=== PATIENT | male | born 1965 | race American Indian/Alaskan Native ===

== ENCOUNTER 2018-02-04 23:48 | Emergency (ER) | payer MEDICAID, OTHER ==
--- NOTE | 2018-02-05 00:01 | EDM.PDOC ---
ED HPI GENERAL MEDICAL PROBLEM - General Chief Complaint: Diabetic Complaint Stated Complaint: HIGH BLOOD SUGAR [id number] [id number] Time Seen by Provider: 02/05/18 00:01 Source of Information: Reports: Patient History Limitations: Reports: No Limitations - History of Present Illness INITIAL COMMENTS - FREE TEXT/NARRATIVE: c/o high BS 580 @ home. last took insulin @ 10:45pm. no other c/o. Lower Back Pain Score (Numeric/FACES): 7 - Related Data Allergies Allergy/AdvReac Type Severity Reaction Status Date / Time No Known Allergies Allergy Verified 05/20/14 21:37 Home Meds: Home Meds Aspirin [Lam Chewable] 81 mg PO DAILY 04/07/13 [History] oxyCODONE ER [OxyCONTIN] 20 mg PO Q12HR 04/07/13 [History] oxyCODONE HCl/Acetaminophen [Percocet 10-325 MG] 1 tab PO Q4H PRN 04/07/13 [ History] Gemfibrozil [Lopid] 600 mg PO BID 04/12/13 [History] Lisinopril [Prinivil] 5 mg PO DAILY 04/12/13 [History] Insulin Detemir [Levemir] 10 unit SQ DAILY 10/27/14 [History] metFORMIN [Glucophage] 1,000 mg PO BIDMEALS 10/27/14 [History] Past Medical History Other Musculoskeletal History: back injury several years ago Endocrine/Metabolic History: Reports: Diabetes, Type II - Past Surgical History Cardiovascular Surgical History: Reports: Coronary Artery Stent Social & Family History - Tobacco Use Smoking Status *Q: Never Smoker - Recreational Drug Use Recreational Drug Use: No ED ROS GENERAL - Review of Systems Review Of Systems: ROS reveals no pertinent complaints other than HPI. ED EXAM GENERAL NO PERIP PULSE - Physical Exam Exam: See Below Exam Limited By: No Limitations General Appearance: Alert, WD/WN, No Apparent Distress Throat/Mouth: Normal Voice, No Airway Compromise Head: Atraumatic Neck: Non-Tender, Full Range of Motion Respiratory/Chest: No Respiratory Distress Cardiovascular: Regular Rate, Rhythm GI/Abdominal: Soft, Non-Tender Neurological: Alert, Oriented, Normal Cognition, Normal Gait, No Motor/Sensory Deficits Psychiatric: Flat Affect Skin Exam: Warm, Dry, Normal Color Lymphatic: No Adenopathy Course - Vital Signs Last Recorded V/S: Last Vital Signs Temp 36.6 C 02/04/18 23:54 Pulse 97 02/04/18 23:54 Resp 16 02/04/18 23:54 BP 165/87 H 02/04/18 23:54 Pulse Ox 98 02/04/18 23:54 - Orders/Labs/Meds Orders: Active Orders 24 hr Category Date Time Status POC Glucose [Blood Glucose Check, Bedside] [] ONETIME Care 02/05/18 00:03 Active POC Glucose [Blood Glucose Check, Bedside] [] ONETIME Care 02/05/18 00:44 Active Labs: Laboratory Tests 02/05/18 02/05/18 02/05/18 Range/Units 00:00 00:00 00:02 WBC 8.5 (5.0-10.0) 10^3/uL RBC 5.50 (4.6-6.2) 10^6/uL Hgb 15.9 (14.0-18.0) g/dL Hct 47.1 (40.0-54.0) % MCV 85.6 (80-100) fL MCH 28.9 (27.0-34.0) pg MCHC 33.8 (33.0-35.0) g/dL Plt Count 205 (150-450) 10^3/uL Neut % (Auto) 49.7 (42.2-75.2) % Lymph % (Auto) 37.5 (20.5-50.1) % Alexander % (Auto) 9.7 H (2-8) % Eos % (Auto) 2.6 (1.0-3.0) % Baso % (Auto) 0.5 (0.0-1.0) % Sodium 128 L (135-145) mmol/L Potassium 3.8 (3.6-5.0) mmol/L Chloride 99 L (101-111) mmol/L Carbon Dioxide 22.0 (21.0-31.0) mmol/L Anion Gap 10.8 BUN 20 H (7-18) mg/dL Creatinine 0.8 (0.6-1.3) mg/dL Est Cr Clr Drug Dosing 112.80 mL/min Estimated GFR (MDRD) > 60 BUN/Creatinine Ratio 25.00 Glucose 556 H* (74-105) mg/dL POC Glucose > 500 H* (70-105) mg/dl Calcium 8.9 (8.4-10.2) mg/dl Total Bilirubin 0.6 (0.2-1.0) mg/dL AST 39 (10-42) IU/L ALT 56 (10-60) IU/L Alkaline Phosphatase 140 H (42-121) IU/L Total Protein 7.8 (6.7-8.2) g/dl Albumin 4.0 (3.2-5.5) g/dl Globulin 3.8 Albumin/Globulin Ratio 1.05 02/05/18 Range/Units 00:42 WBC (5.0-10.0) 10^3/uL RBC (4.6-6.2) 10^6/uL Hgb (14.0-18.0) g/dL Hct (40.0-54.0) % MCV (80-100) fL MCH (27.0-34.0) pg MCHC (33.0-35.0) g/dL Plt Count (150-450) 10^3/uL Neut % (Auto) (42.2-75.2) % Lymph % (Auto) (20.5-50.1) % Alexander % (Auto) (2-8) % Eos % (Auto) (1.0-3.0) % Baso % (Auto) (0.0-1.0) % Sodium (135-145) mmol/L Potassium (3.6-5.0) mmol/L Chloride (101-111) mmol/L Carbon Dioxide (21.0-31.0) mmol/L Anion Gap BUN (7-18) mg/dL Creatinine (0.6-1.3) mg/dL Est Cr Clr Drug Dosing mL/min Estimated GFR (MDRD) BUN/Creatinine Ratio Glucose (74-105) mg/dL POC Glucose 323 H (70-105) mg/dl Calcium (8.4-10.2) mg/dl Total Bilirubin (0.2-1.0) mg/dL AST (10-42) IU/L ALT (10-60) IU/L Alkaline Phosphatase (42-121) IU/L Total Protein (6.7-8.2) g/dl Albumin (3.2-5.5) g/dl Globulin Albumin/Globulin Ratio Meds: Medications Discontinued Medications Generic Name Dose Route Start Last Admin Trade Name Freq PRN Reason Stop Dose Admin Sodium Chloride 1,000 mls @ 999 mls/hr 02/05/18 00:42 02/05/18 00:49 Normal Saline IV 02/05/18 01:42 999 mls/hr .BOLUS ONE Administration Insulin Human Regular 5 unit 02/05/18 00:07 02/05/18 00:11 Humulin R IV 02/05/18 00:08 5 units ONETIME ONE Administration - Re-Assessments/Exams Free Text/Narrative Re-Assessment/Exam: 02/05/18 02:02 re-exam; s/p IV + Rx = much better BS 256 Departure - Departure Time of Disposition: 02:03 Disposition: Home, Self-Care 01 Condition: Fair Clinical Impression: Hyperglycemia - Discharge Information Forms: ED Department Discharge Additional Instructions: 1) follow up at clinic 2) recheck as needed - My Orders Last 24 Hours: My Active Orders 02/05/18 00:03 POC Glucose [Blood Glucose Check, Bedside] [] ONETIME 02/05/18 00:44 POC Glucose [Blood Glucose Check, Bedside] [] ONETIME - Assessment/Plan Last 24 Hours: My Active Orders 02/05/18 00:03 POC Glucose [Blood Glucose Check, Bedside] [] ONETIME 02/05/18 00:44 POC Glucose [Blood Glucose Check, Bedside] [RC] ONETIME
[2018-02-05] MEDS ORDERED: Insulin Regular, Human 100 Units/ML 3 ML Vial IV ONE (00:07)
[2018-02-05 00:37] LABS: ANION GAP 10.8; CHLORIDE,CL 99 mmol/L (101-111); SODIUM,NA 128 mmol/L (135-145)
[2018-02-05] MEDS ORDERED: Sodium Chloride 0.9% 1,000 ML IV ONE (00:42)
[2018-02-05 02:14] VITALS: BP 135/89
== END 2018-02-05 02:08 | disposition home or self-care (01) ==
LOC: DL.ED 23:48
DX: E11.65 Type 2 diabetes mellitus with hyperglycemia (principal); Z95.5 Presence of coronary angioplasty implant and graft; Z79.4 Long term (current) use of insulin; Z79.82 Long term (current) use of aspirin; Z79.899 Other long term (current) drug therapy
CPT/HCPCS: 36415; 80053; 82962; 85025; 96365; 96375; 99283; J1815; J7030

== ENCOUNTER 2018-09-24 22:31 | Emergency (ER) | payer OTHER, MEDICAID ==
[2018-09-24 23:05] VITALS: BP 126/83
[2018-09-24] MEDS ORDERED: Acetaminophen 325 MG Tab PO ONE (23:37)
--- NOTE | 2018-09-24 23:49 | EDM.PDOC ---
ED HPI GENERAL MEDICAL PROBLEM - General Chief Complaint: ENT Problem Stated Complaint: THROAT TROUBLE [id number] Time Seen by Provider: 09/24/18 23:00 Source of Information: Reports: Patient History Limitations: Reports: No Limitations - History of Present Illness INITIAL COMMENTS - FREE TEXT/NARRATIVE: C/O sore throat x 3 days, No fever. No ear pain. - Related Data Allergies Allergy/AdvReac Type Severity Reaction Status Date / Time No Known Allergies Allergy Verified 05/20/14 21:37 Home Meds: Home Meds Aspirin [Lam Chewable] 81 mg PO DAILY 04/07/13 [History] oxyCODONE ER [OxyCONTIN] 20 mg PO Q12HR 04/07/13 [History] oxyCODONE HCl/Acetaminophen [Percocet 10-325 MG] 1 tab PO Q4H PRN 04/07/13 [ History] Gemfibrozil [Lopid] 600 mg PO BID 04/12/13 [History] Lisinopril [Prinivil] 5 mg PO DAILY 04/12/13 [History] Insulin Detemir [Levemir] 10 unit SQ DAILY 10/27/14 [History] metFORMIN [Glucophage] 1,000 mg PO BIDMEALS 10/27/14 [History] Gabapentin [Neurontin] 600 mg PO TID 02/05/18 [History] Omeprazole 20 mg PO BID 02/05/18 [History] Past Medical History HEENT History: Reports: None Cardiovascular History: Reports: Hypertension Respiratory History: Reports: SOB Gastrointestinal History: Reports: Diverticulosis, GERD Musculoskeletal History: Reports: Other (See Below) Other Musculoskeletal History: back injury several years ago Endocrine/Metabolic History: Reports: Diabetes, Type II - Past Surgical History HEENT Surgical History: Reports: None Cardiovascular Surgical History: Reports: Coronary Artery Stent Social & Family History - Tobacco Use Smoking Status *Q: Never Smoker Second Hand Smoke Exposure: No - Recreational Drug Use Recreational Drug Use: No ED ROS ENT - Review of Systems Review Of Systems: ROS reveals no pertinent complaints other than HPI. ED EXAM, ENT - Physical Exam Exam: See Below Exam Limited By: No Limitations General Appearance: Alert Eye Exam: Bilateral Eye: EOMI Ears: Normal External Exam, Normal TMs Nose: Normal Inspection, Normal Mucousa Mouth/Throat: Normal Inspection, Normal Gums, Normal Lips. No: Pharyngeal Erythema, Tonsillar Erythema, Tonsillar Exudates, Uvular Edema Neck: Normal Inspection, Lymphadenopathy (L), Lymphadenopathy (R) (mild) Respiratory/Chest: No Respiratory Distress, Lungs Clear, Normal Breath Sounds Cardiovascular: Normal Peripheral Pulses, Regular Rate, Rhythm GI/Abdominal: Normal Bowel Sounds, Soft Extremities: Normal Inspection Neurological: Alert, Oriented Psychiatric: Normal Affect Skin: Warm, Dry, Intact, Normal Color, No Rash Course - Vital Signs Last Recorded V/S: Last Vital Signs Temp 98.6 F 09/24/18 23:01 Pulse 92 09/24/18 23:01 Resp 18 09/24/18 23:01 BP 126/83 09/24/18 23:01 Pulse Ox 97 09/24/18 23:01 - Orders/Labs/Meds Orders: Active Orders 24 hr Category Date Time Status CULTURE STREP A CONFIRMATION [RM] Stat Lab 09/24/18 23:00 Results STREP SCRN A RAPID W CULT CONF [RM] Stat Lab 09/24/18 23:00 Results Acetaminophen [Tylenol] Med 09/24/18 23:37 Once 650 mg PO NOW ONE Labs: Laboratory Tests 09/24/18 Range/Units 23:16 POC Glucose 345 H (70-105) mg/dl Departure - Departure Time of Disposition: 23:37 Disposition: Home, Self-Care 01 Condition: Good Clinical Impression: Pharyngitis Qualifiers: Pharyngitis/tonsillitis etiology: unspecified etiology Qualified Code(s): J02.9 - Acute pharyngitis, unspecified - Discharge Information *PRESCRIPTION DRUG MONITORING PROGRAM REVIEWED*: Yes *COPY OF PRESCRIPTION DRUG MONITORING REPORT IN PATIENT MARGE: No Instructions: Pharyngitis, Viral Respiratory Infection, [id number] Additional Instructions: increase fluids humidifier tylenol 650mg every 4 hours as needed for discomfort gargle as needed chloraseptic throat spray as needed - My Orders Last 24 Hours: My Active Orders 09/24/18 23:00 CULTURE STREP A CONFIRMATION [RM] Stat STREP SCRN A RAPID W CULT CONF [RM] Stat 09/24/18 23:37 Acetaminophen [Tylenol] 650 mg PO NOW ONE - Assessment/Plan Last 24 Hours: My Active Orders 09/24/18 23:00 CULTURE STREP A CONFIRMATION [RM] Stat STREP SCRN A RAPID W CULT CONF [RM] Stat 09/24/18 23:37 Acetaminophen [Tylenol] 650 mg PO NOW ONE
== END 2018-09-24 23:40 | disposition home or self-care (01) ==
LOC: DL.ED 22:31
DX: J02.9 Acute pharyngitis, unspecified (principal); I10 Essential (primary) hypertension; E11.9 Type 2 diabetes mellitus without complications; Z95.5 Presence of coronary angioplasty implant and graft; Z79.4 Long term (current) use of insulin; Z79.82 Long term (current) use of aspirin; Z79.899 Other long term (current) drug therapy
CPT/HCPCS: 82962; 87081; 87430; 99283; A9270

== ENCOUNTER 2018-10-22 07:00 | Day surgery (SDC) | payer OTHER ==
[~2018-10-22 07:00] MED LIST: Dextrose 5%-0.45% NaCl 1,000 ML IV SCH; Midazolam 1 MG/ML 2 ML SDV ONE; Sodium Chloride 0.9% 10 ML Syringe FLUSH PRN; fentaNYL 100 MCG/2 ML SDV ONE
[2018-10-22] MEDS ORDERED: Midazolam 1 MG/ML 2 ML SDV IV ONE ×3 (07:01→07:58)
[2018-10-22] MEDS ORDERED: fentaNYL 100 MCG/2 ML SDV IV ONE ×3 (07:01→07:57)
[2018-10-22 10:10] VITALS: BP 117/72
--- NOTE | 2018-10-22 14:45 | OR ---
DATE: 10/22/2018 PROCEDURE: Esophagogastroduodenoscopy, NBI, and multiple pinch biopsies. INSTRUMENT USED: [id number] Olympus video panendoscope. PREMEDICATIONS: No oral or topical anesthesia used. Fentanyl 100 mcg intravenous, Versed 2 mg intravenous. The procedure was done under pulse oximetry, BP recording, and hospital scientist. INDICATION: The patient with diabetes mellitus and chronic hepatitis C having persistent abdominal pain, dyspepsia, as well as episodes of vomiting, unexplained, and not responsive to medical measures. Esophagogastroduodenoscopy is performed for detection of any active erosive lesions, esophageal varices also under consideration, Ragland esophagus and/or malignancy to be looked for, H. pylori status to be determined, small bowel biopsies to be obtained if indicated, endoscopic hemostasis therapy if needed. DESCRIPTION OF PROCEDURE: The scope was passed with ease. Adequate visualization of the esophagus was made from proximal to distal areas. No upper esophageal lesions identified. No distal esophageal stricture. No uphill or downhill esophageal varices. No Rebecca-Ng tear. Grade A erosive changes were noted by Vermilion criteria. No esophageal polyp or tumor mass identified. Z-line was seen at around 40 cm distal to the oral verge, configuration consistent with grade 1 by ZAP classification. No proximal gastric varices identified. Gastric fundus examination by retroflexion showed no polypoid lesions. No gastric ulcer, malignant mass, or vascular ectasia identified. Duodenal bulb showed no ulcer. Visualized second part of the duodenum was unremarkable. Multiple pinch biopsies, 4 in number, were taken from different areas of the second part of the duodenum and tissues were also obtained from the duodenal bulb at 9 and 12 o'clock positions and sent for any histopathologic evidence of celiac disease. Multiple pinch biopsies were also obtained from the gastric antrum and proximal body and sent for PyloriTek test for H. pylori and histopathology. No bleeding was noted from any of the visualized areas at the completion of examination. NBI views were obtained of the distal esophagus. Photographs were taken of the duodenal bulb, gastric antrum, fundus, and distal esophagus. IMPRESSION: Grade A gastroesophageal reflux disease. The patient tolerated the procedure well. [facility] /[id number]
--- NOTE | 2018-10-22 15:21 | LETTER ---
10/22/2018 [facility] [address] [place] [address] RE: ANCELMOSEBASTIEN : 1965 Dear Mr. Parson: Mr. Sebastien Taylor had esophagogastroduodenoscopy done this morning and he tolerated the procedure well. I herewith send a copy of the endoscopy note and photographs for your review. Thank you. Sincerely, [facility] /[id number]
== END 2018-10-22 10:36 | disposition home or self-care (01) ==
LOC: DL.ENDO 07:00
PROVIDERS: ATTEND Internal Medicine Gastroenterology
DX: K21.9 Gastro-esophageal reflux disease without esophagitis (principal); I78.1 Nevus, non-neoplastic; E11.9 Type 2 diabetes mellitus without complications; B18.2 Chronic viral hepatitis C; I10 Essential (primary) hypertension; E78.5 Hyperlipidemia, unspecified; E66.09 Other obesity due to excess calories; Z68.37 Body mass index [BMI] 37.0-37.9, adult; Z80.0 Family history of malignant neoplasm of digestive organs; Z79.4 Long term (current) use of insulin; Z98.890 Other specified postprocedural states
CPT/HCPCS: 43239; 87077; J2250; J3010; J7042

== ENCOUNTER 2018-10-25 06:21 | Day surgery (SDC) | payer OTHER ==
[2018-10-25] MEDS ORDERED: fentaNYL 100 MCG/2 ML SDV IV ONE ×3 (06:22→07:35)
[2018-10-25] MEDS ORDERED: Midazolam 1 MG/ML 2 ML SDV IV ONE ×7 (06:22→07:41)
--- NOTE | 2018-10-25 08:25 | OR ---
DATE: 10/25/2018 PROCEDURE: Total colonoscopy. INSTRUMENT USED: [id number] Olympus video colonoscope. PREMEDICATIONS: Fentanyl 100 mcg intravenous, Versed 4 mg intravenous. Nasal O2 cannula. The procedure was done under pulse oximetry, BP recording, and playground monitor. INDICATION: The patient with rectal bleeding and high-risk family history for colon cancer. Colonoscopic examination is done for detection of any polypoid lesions and removal, endoscopic hemostasis therapy if needed. DESCRIPTION OF PROCEDURE: Initial rectal exam was unremarkable. Rigid anoscopy was normal. The colonoscope was passed with ease up to the ileocecal area. Photographs were taken of the cecum, identified by landmarks of appendiceal orifice and double-bulged ileocecal folds. No bleeding was noted from any of the visualized areas at the commencement of the examination. The visualization was extremely limited in the right colon especially in the cecum because of solid fecal material that could not be aspirated clear. The bowel preparation was adequate. Entrance was in the left colon, Larose scale 2, but inadequate in the right colon especially cecum, Larose scale 1. No stricture. No vascular ectasia. No large isolated ulcerations seen. No evidence of diffuse inflammatory bowel disease in the form of friability, contact bleeding, or ulcerations. No polyp or tumor mass identified. Probing the proximal sides of folds and flexures, using adequate distention and clearing up the stool material, withdrawal of the scope was made, cecum to rectum time over 6 minutes. No bleeding was noted from any of the visualized areas at the completion of examination. IMPRESSION: Normal study. The patient tolerated the procedure well. [facility] /[id number]
[2018-10-25 11:00] VITALS: BP 109/79
--- NOTE | 2018-10-25 12:52 | LETTER ---
10/25/2018 Niru Parson, [facility] [address] [place] [address] RE: ANCELMOSEBASTIEN : 1965 Dear Mr. Parson: Mr. Sebastien Taylor had colonoscopic examination done this morning and he tolerated the procedure well. I herewith send a copy of the endoscopy note and photographs for your review. Thank you. Sincerely, [facility] /[id number]
== END 2018-10-25 09:50 | disposition home or self-care (01) ==
LOC: DL.ENDO 06:21
PROVIDERS: ATTEND Internal Medicine Gastroenterology
DX: K62.5 Hemorrhage of anus and rectum (principal); Z80.0 Family history of malignant neoplasm of digestive organs
CPT/HCPCS: 45378; J2250; J3010; J7042; G0121

== ENCOUNTER 2020-06-01 16:29 | Emergency (ER) | payer MEDICAID, MEDICARE ==
[2020-06-01 16:46] VITALS: BP 138/96; PULSE 107
[2020-06-01] MEDS ORDERED: methylPREDNISolone Sodium Succinate 125 MG/2 ML SDV IM ONE (16:46)
[2020-06-01] MEDS ORDERED: Orphenadrine 60 MG/2 ML Inj IM ONE (16:47)
--- NOTE | 2020-06-01 17:00 | EDM.PDOC ---
ED HPI GENERAL MEDICAL PROBLEM - General Chief Complaint: Back Pain or Injury Stated Complaint: BACK PAIN Time Seen by Provider: 06/01/20 16:45 Source of Information: Reports: Patient History Limitations: Reports: No Limitations - History of Present Illness INITIAL COMMENTS - FREE TEXT/NARRATIVE: This 55 yo male patient reports to the ED with increased lower back pain. The patient reports he has had an MRI demonstrating bulging disks. The patient reports he is taking Gabapentin and is supposed to take Cyclobenzaprine. The patient reports he has not been taking the Cyclobenzaprine as it has not helped him. Onset: Gradual Duration: Day(s):, Constant Location: Reports: Back (lower back) Quality: Reports: Ache Severity: Severe Improves with: Reports: None Worsens with: Reports: None Context: Reports: Other Right Lower Hip Pain Score (Numeric/FACES): 7 - Related Data Allergies Allergy/AdvReac Type Severity Reaction Status Date / Time No Known Allergies Allergy Verified 06/01/20 16:46 Home Meds: Home Meds Aspirin [Lam Chewable] 81 mg PO DAILY 04/07/13 [History] Insulin Detemir [Levemir] 30 unit SQ ASDIRECTED PRN 10/27/14 [History] metFORMIN HCl [Metformin HCl] 500 mg PO 09/24/19 [History] Gabapentin [Neurontin] 600 mg PO TID 06/01/20 [History] Past Medical History HEENT History: Reports: None Cardiovascular History: Reports: High Cholesterol, Hypertension Respiratory History: Reports: SOB Gastrointestinal History: Reports: Diverticulosis, GERD, Hepatitis Genitourinary History: Reports: None Musculoskeletal History: Reports: Other (See Below) Other Musculoskeletal History: back injury several years ago Neurological History: Reports: None Psychiatric History: Reports: None Endocrine/Metabolic History: Reports: Diabetes, Type II, Obesity/BMI 30+ Hematologic History: Reports: None Immunologic History: Reports: None Oncologic (Cancer) History: Reports: None Dermatologic History: Reports: None - Infectious Disease History Infectious Disease History: Reports: Hepatitis C - Past Surgical History Head Surgeries/Procedures: Reports: None HEENT Surgical History: Reports: None Cardiovascular Surgical History: Reports: Coronary Artery Stent GI Surgical History: Reports: Colonoscopy, EGD Male Surgical History: Reports: None Neurological Surgical History: Reports: Lumbar Spine, Other (See Below) Other Neurological Surgeries/Procedures: "LOWER BACK" SURGERY Musculoskeletal Surgical History: Reports: None Social & Family History - Family History Family Medical History: No Pertinent Family History - Tobacco Use Tobacco Use Status *Q: Never Tobacco User - Caffeine Use Caffeine Use: Reports: None - Recreational Drug Use Recreational Drug Use: Yes Drug Use in Last 12 Months: Yes Recreational Drug Type: Reports: Marijuana/Hashish ED ROS GENERAL - Review of Systems Review Of Systems: Comprehensive ROS is negative, except as noted in HPI. ED EXAM,LOWER BACK PAIN/INJURY - Physical Exam Exam: See Below Exam Limited By: No Limitations General Appearance: Alert, WD/WN, Moderate Distress Eye Exam: Bilateral Eye: EOMI, Normal Inspection, PERRL Ears: Normal External Exam, Normal Canal, Hearing Grossly Normal, Normal TMs Nose: Normal Inspection, Normal Mucosa, No Blood Throat/Mouth: Normal Inspection, Normal Lips, Normal Teeth, Normal Gums, Normal Oropharynx, Normal Voice, No Airway Compromise Head: Atraumatic, Normocephalic Neck: Normal Inspection, Supple, Non-Tender, Full Range of Motion Respiratory/Chest: No Respiratory Distress, Lungs Clear, Normal Breath Sounds, No Accessory Muscle Use, Chest Non-Tender Cardiovascular: Normal Peripheral Pulses, Regular Rate, Rhythm, No Edema, No Gallop, No JVD, No Murmur, No Rub (Male) Exam: Deferred Rectal (Males) Exam: Deferred Back Exam: Decreased Range of Motion, Muscle Spasm, Paraspinal Tenderness, Vertebral Tenderness Extremities: Normal Inspection, Normal Range of Motion, Non-Tender, No Pedal Edema, Normal Capillary Refill Neurological: Alert, Normal Mood/Affect, Oriented x 3, Difficulty Walking (due to back pain) Course - Vital Signs Last Recorded V/S: Last Vital Signs Temp 36.4 C 06/01/20 16:42 Pulse 107 H 06/01/20 16:42 Resp 14 06/01/20 16:42 BP 138/96 H 06/01/20 16:42 Pulse Ox 99 06/01/20 16:42 - Orders/Labs/Meds Meds: Medications Discontinued Medications Generic Name Dose Route Start Last Admin Trade Name Freq PRN Reason Stop Dose Admin Methylprednisolone Sodium Succinate 125 mg 06/01/20 16:46 Solu-Medrol IM 06/01/20 16:47 ONETIME ONE Orphenadrine Citrate 60 mg 06/01/20 16:47 Norflex IM 06/01/20 16:48 ONETIME ONE Departure - Departure Time of Disposition: 16:59 Disposition: Home, Self-Care 01 Condition: Fair Clinical Impression: Acute exacerbation of chronic low back pain - Discharge Information *PRESCRIPTION DRUG MONITORING PROGRAM REVIEWED*: Not Applicable *COPY OF PRESCRIPTION DRUG MONITORING REPORT IN PATIENT MARGE: Not Applicable Instructions: Chronic Back Pain, [id number] Care Plan Goals: The patient was advised of the examination results during the visit. The patient was given an injection of Solumedrol (125 mg) while in the ED. The patient was discharged with scripts for Prednisone (20 mg) #10 to take 2 by mouth for 5 days. The patient was advised to take his other medications as advised. If the patient has any additional symptoms or concerns, the patient should either return to the emergency department or visit his primary care facility. Sepsis Event Note (ED) - Evaluation Sepsis Screening Result: No Definite Risk - Focused Exam Vital Signs: Vital Signs Temp Pulse Resp BP Pulse Ox 06/01/20 16:42 36.4 C 107 H 14 138/96 H 99
== END 2020-06-01 17:07 | disposition home or self-care (01) ==
LOC: DL.ED 16:29
DX: M54.5 Low back pain (principal); G89.29 Other chronic pain; I10 Essential (primary) hypertension; E11.9 Type 2 diabetes mellitus without complications; E66.9 Obesity, unspecified; Z79.82 Long term (current) use of aspirin; Z79.4 Long term (current) use of insulin; Z68.36 Body mass index [BMI] 36.0-36.9, adult
CPT/HCPCS: 96372; 99283; J2360; J2930

== ENCOUNTER 2020-07-05 15:18 | Emergency (ER) | payer MEDICARE ==
[2020-07-05 16:16] VITALS: BP 164/98; PULSE 103
[2020-07-05 18:00] LABS: ANION GAP 12.8 mEq/L (7-13); CHLORIDE,CL 101 mmol/L (98-107); SODIUM,NA 138 mmol/L (136-145)
[2020-07-05] MEDS ORDERED: Iopamidol 612 MG/ML 100 ML Bottle IVPUSH ONE (18:13)
--- NOTE | 2020-07-05 18:42 | EDM.PDOC ---
Scribed by Kaylee Beasley 07/05/20 0119 for Maribell Castro NP <Maribell Castro - Last Filed: 07/05/20 18:41> ED HPI GENERAL MEDICAL PROBLEM - General Chief Complaint: Abdominal Pain Stated Complaint: STOMACH PAIN Time Seen by Provider: 07/05/20 17:56 Source of Information: Reports: Patient, RN, RN Notes Reviewed History Limitations: Reports: No Limitations - History of Present Illness INITIAL COMMENTS - FREE TEXT/NARRATIVE: Patient is a 55-year-old male who presents to ER with complaint of stomach pain. States he has a gallstone. Bowel movements are normal. States he can urinate but feels he is unable to do so right now. His last bowel movement was this A.M. which was normal., he uses fiber. Usually urinates normally 3-4 times at night. Abdominal p[ain began last evening. He last ate yesterday chicken noodle soup and grilled cheese. He has nausea and vomiting. No chest pain, shortness of breath, cough or diarrhea. Onset: Gradual Duration: Constant Location: Reports: Abdomen Quality: Reports: Ache Severity: Moderate Improves with: Reports: None Worsens with: Reports: None Associated Symptoms: Denies: No Other Symptoms - Related Data Allergies Allergy/AdvReac Type Severity Reaction Status Date / Time No Known Allergies Allergy Verified 06/01/20 16:46 Home Meds: Home Meds Aspirin [Lam Chewable] 81 mg PO DAILY 04/07/13 [History] Insulin Detemir [Levemir] 30 unit SQ ASDIRECTED PRN 10/27/14 [History] metFORMIN HCl [Metformin HCl] 500 mg PO BID 09/24/19 [History] Gabapentin [Neurontin] 600 mg PO TID 06/01/20 [History] Past Medical History HEENT History: Reports: None Cardiovascular History: Reports: High Cholesterol, Hypertension Respiratory History: Reports: SOB Gastrointestinal History: Reports: Diverticulosis, GERD, Hepatitis Genitourinary History: Reports: None Musculoskeletal History: Reports: Other (See Below) Other Musculoskeletal History: back injury several years ago Neurological History: Reports: None Psychiatric History: Reports: None Endocrine/Metabolic History: Reports: Diabetes, Type II, Obesity/BMI 30+ Hematologic History: Reports: None Immunologic History: Reports: None Oncologic (Cancer) History: Reports: None Dermatologic History: Reports: None - Infectious Disease History Infectious Disease History: Reports: Hepatitis C - Past Surgical History Head Surgeries/Procedures: Reports: None HEENT Surgical History: Reports: None Cardiovascular Surgical History: Reports: Coronary Artery Stent GI Surgical History: Reports: Colonoscopy, EGD Male Surgical History: Reports: None Neurological Surgical History: Reports: Lumbar Spine, Other (See Below) Other Neurological Surgeries/Procedures: "LOWER BACK" SURGERY Musculoskeletal Surgical History: Reports: None Social & Family History - Family History Family Medical History: No Pertinent Family History - Tobacco Use Tobacco Use Status *Q: Never Tobacco User - Caffeine Use Caffeine Use: Reports: None - Recreational Drug Use Recreational Drug Use: No ED ROS GENERAL - Review of Systems Review Of Systems: Comprehensive ROS is negative, except as noted in HPI. ED EXAM, GI/ABD - Physical Exam Exam: See Below Exam Limited By: No Limitations General Appearance: Alert, WD/WN, No Apparent Distress Eyes: Bilateral: Normal Appearance Ears: Normal External Exam, Normal Canal, Hearing Grossly Normal, Normal TMs Nose: Normal Inspection, Normal Mucosa, No Blood Throat/Mouth: Normal Inspection, Normal Lips, Normal Teeth, Normal Gums, Normal Oropharynx, Normal Voice, No Airway Compromise Head: Atraumatic, Normocephalic Neck: Normal Inspection, Supple, Non-Tender, Full Range of Motion Respiratory/Chest: Crackles (diminished crackles to bases bilaterally) Cardiovascular: Normal Peripheral Pulses, Regular Rate, Rhythm, No Edema, No Gallop, No JVD, No Murmur, No Rub GI/Abdominal Exam: Normal Bowel Sounds, Soft, Non-Tender, No Organomegaly, No Distention, No Abnormal Bruit, No Mass, Pelvis Stable (Male) Exam: Deferred Rectal (Males) Exam: Deferred Back Exam: Decreased Range of Motion Extremities: Normal Inspection, Normal Range of Motion, Non-Tender, Normal Capillary Refill, No Pedal Edema Neurological: Alert, Oriented, CN II-XII Intact, Normal Cognition, Normal Gait, Normal Reflexes, No Motor/Sensory Deficits Psychiatric: Normal Affect, Normal Mood Skin Exam: Warm, Dry, Intact, Normal Color, No Rash Lymphatic: No Adenopathy Course - Re-Assessments/Exams Free Text/Narrative Re-Assessment/Exam: 07/05/20 18:42 Patient care turned over to Aye Corbin NP at shift change. Departure - Departure Disposition: Home, Self-Care 01 Clinical Impression: Cholecystitis - Discharge Information Instructions: Gallbladder Eating Plan, Cholecystitis, [id number] Forms: ED Department Discharge Additional Instructions: Rx: Metronidazole Rx: Ciprofloxacin Rx: Ibuprofen 1.) Follow up with your previous surgeon tomorrow to discuss ongoing management of gallbladder disease. 2.) Take all of your antibiotics until they are gone, unless otherwise told not to by your surgeon. 3.) Drink plenty of water to stay hydrated. 4.) Eat a bland, low-fat diet; avoid spicy, greasy foods. Sepsis Event Note (ED) - Evaluation Sepsis Screening Result: No Definite Risk <Aye Corbin - Last Filed: 07/05/20 19:55> Course - Vital Signs Last Recorded V/S: Last Vital Signs Temp 96.9 F 07/05/20 16:15 Pulse 103 H 07/05/20 16:15 Resp 20 07/05/20 16:15 BP 164/98 H 07/05/20 16:15 Pulse Ox 98 07/05/20 16:15 - Orders/Labs/Meds Labs: Laboratory Tests 07/05/20 07/05/20 07/05/20 Range/Units 17:34 17:34 18:59 WBC 12.6 H (5.0-10.0) 10^3/uL RBC 5.29 (4.6-6.2) 10^6/uL Hgb 15.4 (14.0-18.0) g/dL Hct 45.2 (40.0-54.0) % MCV 85.4 (80-100) fL MCH 29.1 (27.0-34.0) pg MCHC 34.1 (33.0-35.0) g/dL Plt Count 185 (150-450) 10^3/uL Neut % (Auto) 72.1 (42.2-75.2) % Lymph % (Auto) 16.5 L (20.5-50.1) % Schleicher % (Auto) 10.5 H (2-8) % Eos % (Auto) 0.7 L (1.0-3.0) % Baso % (Auto) 0.2 (0.0-1.0) % Sodium 138 (136-145) mmol/L Potassium 3.8 (3.5-5.1) mmol/L Chloride 101 (98-107) mmol/L Carbon Dioxide 28 (21-32) mmol/L Anion Gap 12.8 (7-13) mEq/L BUN 16 (7-18) mg/dL Creatinine 0.63 L (0.70-1.30) mg/dL Est Cr Clr Drug Dosing 134.04 mL/min Estimated GFR (MDRD) > 60 BUN/Creatinine Ratio 25.4 (No establ ref range) Glucose 179 H (74-99) mg/dL Calcium 8.7 (8.5-10.1) mg/dL Total Bilirubin 0.4 (0.2-1.0) mg/dL AST 21 (15-37) U/L ALT 44 (16-63) U/L Alkaline Phosphatase 90 (46-116) U/L Troponin I < 0.017 (0.000-0.056) ng/mL Total Protein 7.3 (6.4-8.2) g/dL Albumin 3.3 L (3.4-5.0) g/dL Globulin 4.0 Albumin/Globulin Ratio 0.83 Amylase 120 H (25-115) U/L Lipase 360 (73-393) U/L Urine Color Yellow (YELLOW) Urine Appearance Clear (CLEAR) Urine pH 6.5 (5.0-9.0) Ur Specific Clio >= 1.030 (1.005-1.030) Urine Protein 30 H (NEGATIVE) Urine Glucose (UA) 100 H (NEGATIVE) Urine Ketones 15 H (NEGATIVE) Urine Occult Blood Negative (NEGATIVE) Urine Nitrite Negative (NEGATIVE) Urine Bilirubin Negative (NEGATIVE) Urine Urobilinogen 0.2 (0.2-1.0) mg/dL Ur Leukocyte Esterase Negative (NEGATIVE) Urine RBC Not seen /HPF Urine WBC 0-5 (0-5/HPF) /HPF Ur Epithelial Cells Few (NOT SEEN) /HPF Amorphous Sediment Rare (NOT SEEN) /HPF Urine Bacteria Rare (0-FEW/HPF) /HPF Granular Casts (Auto) Occasional Urine Mucus Few H (NOT SEEN) /LPF Meds: Medications Discontinued Medications Generic Name Dose Route Start Last Admin Trade Name Freq PRN Reason Stop Dose Admin Ciprofloxacin 500 mg 07/05/20 19:39 07/05/20 19:44 Ciprofloxacin Hcl PO 07/05/20 19:40 500 mg ONETIME ONE Administration Iopamidol 100 ml 07/05/20 18:13 07/05/20 18:31 Isovue-300 (61%) IVPUSH 07/05/20 18:14 100 ml ONETIME ONE Administration Metronidazole 500 mg 07/05/20 19:38 07/05/20 19:44 Metronidazole PO 07/05/20 19:39 500 mg ONETIME ONE Administration - Radiology Interpretation Free Text/Narrative:: [facility] Final Radiology Report Call: [phone] assistance Online chat: [email or web address] Name: MELLO AG Age: 55Years M Date: 07/05/2020 SSN: -- : [id number] Study: CT ABDOMEN PELVIS W CONT Requesting Physician: Maribell Castro Images: [id number] Addl Studies: Provided Clinical History: abdominal pain Contrast: With Contrast Medium: [id number] Contrast Amount: 100 mL Contrast Method: Intravenous (IV) Page 1 of 2 PROCEDURE INFORMATION: Exam: CT Abdomen And Pelvis With Contrast Exam date and time: 07/05/2020 6:48 PM Age: 55 years old Clinical indication: Other: Wbc 12,600; Additional info: Abdominal pain TECHNIQUE: Imaging protocol: Computed tomography of the abdomen and pelvis with contrast. Radiation optimization: All CT scans at this facility use at least one of these dose optimization techniques: automated exposure control; mA and/or kV adjustment per patient size (includes targeted exams where dose is matched to clinical indication); or iterative reconstruction. Contrast material: [id number]; Contrast volume: 100 ml; Contrast route: INTRAVENOUS (IV); COMPARISON: CT Abdomen Pelvis w Cont 10/04/2019 9:35 AM FINDINGS: Liver: Normal. No mass. Gallbladder and bile ducts: Persistent significant distention of gallbladder with what may be annular calcification in gallbladder neck. Pancreas: Normal. No ductal dilation. Spleen: Normal. No splenomegaly. Adrenal glands: Normal. No mass. Kidneys and ureters: Normal. No hydronephrosis. Stomach and bowel: Unremarkable. No obstruction. No mucosal thickening. Appendix: No evidence of appendicitis. Intraperitoneal space: Unremarkable. No free air. No significant fluid collection. Vasculature: Unremarkable. No abdominal aortic aneurysm. Lymph nodes: Unremarkable. No enlarged lymph nodes. MELLO AG | Final Radiology Report CONFIDENTIALITY STATEMENT This report is intended only for use by the referring physician, and only in accordance with law. If you received this in error, call [phone]. Page 2 of 2 Urinary bladder: Unremarkable as visualized. Reproductive: Unremarkable as visualized. Bones/joints: Prominent degenerative changes in right sacroiliac joint again noted . No acute fracture. Soft tissues: Unremarkable. IMPRESSION: Persistent significant distention of gallbladder with what may be obstructive calcified process involving gallbladder neck. Cholecystitis is a consideration given history. Consider further evaluation with ultrasound. Thank you for allowing us to participate in the care of your patient. Dictated and Authenticated by: Devang Camejo MD 07/05/2020 7:14 PM Central Time ([place] & [place]) - Re-Assessments/Exams Free Text/Narrative Re-Assessment/Exam: 07/05/20 19:46 CT of abdomen/pelvis revealed persistent enlarged gallbladder with possible obstruction via calcifications. WBC slightly elevated at 12.6 with no left shift present. Amylase mildly elevated at 120; Lipase and LFTs WNL. UA unremarkable for acute processes. Discussed findings of imaging and blood work with patient. He states he has been in contact with a surgeon in [place] since February 2020, but they did not perform a cholecystectomy due to elevated A1C and instructed the patient to get his sugars better controlled. Since the patient has established care with a surgeon, will treat acute infection with Cipro and Metronidazole and instruct him to follow up with his surgeon tomorrow. Unable to obtain US here tonight, and does meet criteria for transfer for US as there is no liver involvement, signs of sepsis, perforation, etc... Blood pressure and HR improved; 125/82 and 80, respectively. Departure - Departure Time of Disposition: 19:22 Condition: Good - Discharge Information *PRESCRIPTION DRUG MONITORING PROGRAM REVIEWED*: Not Applicable *COPY OF PRESCRIPTION DRUG MONITORING REPORT IN PATIENT MARGE: Not Applicable Sepsis Event Note (ED) - Focused Exam Vital Signs: Vital Signs Temp Pulse Resp BP Pulse Ox 07/05/20 16:15 96.9 F 103 H 20 164/98 H 98 I have read and agree with the documentation that has been completed regarding this visit. By signing this record, I attest that the documentation was completed in my physical presence and is an accurate record of the encounter.
--- NOTE | 2020-07-05 19:14 | CT ---
PROCEDURE INFORMATION: Exam: CT Abdomen And Pelvis With Contrast Exam date and time: 07/05/2020 6:48 PM Age: 55 years old Clinical indication: Other: Wbc 12,600; Additional info: Abdominal pain TECHNIQUE: Imaging protocol: Computed tomography of the abdomen and pelvis with contrast. Radiation optimization: All CT scans at this facility use at least one of these dose optimization techniques: automated exposure control; mA and/or kV adjustment per patient size (includes targeted exams where dose is matched to clinical indication); or iterative reconstruction. Contrast material: [id number]; Contrast volume: 100 ml; Contrast route: INTRAVENOUS (IV); COMPARISON: CT Abdomen Pelvis w Cont 10/04/2019 9:35 AM FINDINGS: Liver: Normal. No mass. Gallbladder and bile ducts: Persistent significant distention of gallbladder with what may be annular calcification in gallbladder neck. Pancreas: Normal. No ductal dilation. Spleen: Normal. No splenomegaly. Adrenal glands: Normal. No mass. Kidneys and ureters: Normal. No hydronephrosis. Stomach and bowel: Unremarkable. No obstruction. No mucosal thickening. Appendix: No evidence of appendicitis. Intraperitoneal space: Unremarkable. No free air. No significant fluid collection. Vasculature: Unremarkable. No abdominal aortic aneurysm. Lymph nodes: Unremarkable. No enlarged lymph nodes. Urinary bladder: Unremarkable as visualized. Reproductive: Unremarkable as visualized. Bones/joints: Prominent degenerative changes in right sacroiliac joint again noted . No acute fracture. Soft tissues: Unremarkable. IMPRESSION: Persistent significant distention of gallbladder with what may be obstructive calcified process involving gallbladder neck. Cholecystitis is a consideration given history. Consider further evaluation with ultrasound.
[2020-07-05] MEDS ORDERED: metroNIDAZOLE 250 MG Tab PO ONE (19:38)
[2020-07-05] MEDS ORDERED: Ciprofloxacin 500 MG Tab PO ONE (19:39)
== END 2020-07-05 19:47 | disposition home or self-care (01) ==
LOC: DL.ED 15:18
DX: K81.9 Cholecystitis, unspecified (principal); I10 Essential (primary) hypertension; E11.9 Type 2 diabetes mellitus without complications; E66.9 Obesity, unspecified; Z68.36 Body mass index [BMI] 36.0-36.9, adult; Z79.82 Long term (current) use of aspirin; Z79.4 Long term (current) use of insulin
CPT/HCPCS: 36415; 74177; 80053; 81001; 82150; 83690; 84484; 85025; 99284; A9270; Q9967

== ENCOUNTER 2020-08-27 20:55 | Emergency (ER) | payer MEDICARE, MEDICAID ==
[2020-08-27] MEDS ORDERED: Orphenadrine 60 MG/2 ML Inj IM ONE (21:39)
[2020-08-27] MEDS ORDERED: methylPREDNISolone Sodium Succinate 125 MG/2 ML SDV IM ONE (21:39)
[2020-08-27 21:44] VITALS: PULSE 111
--- NOTE | 2020-08-27 21:44 | EDM.PDOC ---
ED HPI GENERAL MEDICAL PROBLEM - General Chief Complaint: Lower Extremity Injury/Pain Stated Complaint: LEFT LEG SHOOTING PAIN 3 DAYS DIABETIC PT Time Seen by Provider: 08/27/20 21:35 Source of Information: Reports: Patient History Limitations: Reports: No Limitations - History of Present Illness INITIAL COMMENTS - FREE TEXT/NARRATIVE: This 55 yo male patient reports to the ED with a 4 day history of increased lower back pain and pain shooting down his left leg. The patient denies any recent injury or falls. The patient reports he has been seen by his primary care facility, had an MRI, went to PT and was advised that PT could not improve his symptoms. The patient did return to his primary care facility and was started on pain medications, but no other current plans. The patient reports he has not been able to sleep due to the pain. The patient reports he attempted to get an appointment at the clinic, but could not get in today. 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, NSAIDS - Related Data Allergies Allergy/AdvReac Type Severity Reaction Status Date / Time No Known Allergies Allergy Verified 06/01/20 16:46 Home Meds: Home Meds Insulin Detemir [Levemir] 60 unit SQ BID 10/27/14 [History] Gabapentin [Neurontin] 600 mg PO TID 06/01/20 [History] Hydrocodone/Acetaminophen [Hydrocodone-Acetamin 5-325 mg] 1 - 2 tab PO Q4HR PRN 08/27/20 [History] Insulin Aspart [NovoLOG] 10 unit SQ ASDIRECTED 08/27/20 [History] Omeprazole 20 mg PO DAILY 08/27/20 [History] Pioglitazone [Actos] 45 mg PO DAILY 08/27/20 [History] Pravastatin [Pravachol] 20 mg PO DAILY 08/27/20 [History] lisinopriL [Lisinopril] 5 mg PO DAILY 08/27/20 [History] Past Medical History HEENT History: Reports: None Cardiovascular History: Reports: High Cholesterol, Hypertension Respiratory History: Reports: SOB Gastrointestinal History: Reports: Diverticulosis, GERD, Hepatitis Genitourinary History: Reports: None Musculoskeletal History: Reports: Back Pain, Chronic, Other (See Below) Other Musculoskeletal History: Back injury several years ago Neurological History: Reports: None Psychiatric History: Reports: None Endocrine/Metabolic History: Reports: Diabetes, Type II, Obesity/BMI 30+ Hematologic History: Reports: None Immunologic History: Reports: None Oncologic (Cancer) History: Reports: None Dermatologic History: Reports: None - Infectious Disease History Infectious Disease History: Reports: Hepatitis C - Past Surgical History Head Surgeries/Procedures: Reports: None HEENT Surgical History: Reports: None Cardiovascular Surgical History: Reports: Coronary Artery Stent GI Surgical History: Reports: Cholecystectomy, Colonoscopy, EGD Male Surgical History: Reports: None Endocrine Surgical History: Reports: None Neurological Surgical History: Reports: Lumbar Spine Musculoskeletal Surgical History: Reports: Other (See Below) Other Musculoskeletal Surgeries/Procedures:: Back surgery 2011 Social & Family History - Family History Family Medical History: No Pertinent Family History - Caffeine Use Caffeine Use: Reports: None Review of Systems - Review of Systems Review Of Systems: Comprehensive ROS is negative, except as noted in HPI. ED EXAM, GENERAL - Physical Exam Exam: See Below Exam Limited By: No Limitations General Appearance: Alert, WD/WN, Moderate Distress, Obese Eye Exam: Bilateral Eye: EOMI, Normal Inspection, PERRL Ears: Normal External Exam, Normal Canal, Hearing Grossly Normal, Normal TMs Nose: Normal Inspection, Normal Mucosa, No Blood Throat/Mouth: Normal Inspection, Normal Lips, Normal Teeth, Normal Gums, Normal Oropharynx, Normal Voice, No Airway Compromise Head: Atraumatic, Normocephalic Neck: Normal Inspection, Supple, Non-Tender, Full Range of Motion Respiratory/Chest: No Respiratory Distress, Lungs Clear, Normal Breath Sounds, No Accessory Muscle Use, Chest Non-Tender Cardiovascular: Normal Peripheral Pulses, Regular Rate, Rhythm, No Edema, No Gallop, No JVD, No Murmur, No Rub GI/Abdominal: Normal Bowel Sounds, Soft, Non-Tender, No Organomegaly, No Distention, No Abnormal Bruit, No Mass (Male) Exam: Deferred Rectal (Males) Exam: Deferred Back Exam: Paraspinal Tenderness, Vertebral Tenderness Extremities: Leg Pain (left leg pain (left buttocks, left hip, left lateral thigh, and left lower leg/foot pain)) Neurological: Alert, Oriented Psychiatric: Depressed Mood, Flat Affect Skin Exam: Warm, Dry, Intact, Normal Color, No Rash Lymphatic: No Adenopathy Course - Vital Signs Last Recorded V/S: Last Vital Signs Temp 36.9 C 08/27/20 21:24 Pulse 111 H 08/27/20 21:24 Resp 18 08/27/20 21:24 BP 152/102 H 08/27/20 21:24 Pulse Ox 97 08/27/20 21:24 - Orders/Labs/Meds Meds: Medications Discontinued Medications Generic Name Dose Route Start Last Admin Trade Name Rigoberto PRN Reason Stop Dose Admin Methylprednisolone Sodium Succinate 125 mg 08/27/20 21:39 Methylprednisolone Sodium Succinate 125 Mg/2 Ml Sdv IM 08/27/20 21:40 ONETIME ONE Orphenadrine Citrate 60 mg 08/27/20 21:39 Orphenadrine 60 Mg/2 Ml Inj IM 08/27/20 21:40 ONETIME ONE Departure - Departure Time of Disposition: 21:41 Disposition: Home, Self-Care 01 Condition: Fair Clinical Impression: Left sciatic nerve pain Chronic low back pain with left-sided sciatica Qualifiers: Back pain laterality: left Qualified Code(s): M54.42 - Lumbago with sciatica, left side - Discharge Information *PRESCRIPTION DRUG MONITORING PROGRAM REVIEWED*: Not Applicable *COPY OF PRESCRIPTION DRUG MONITORING REPORT IN PATIENT MARGE: Not Applicable Instructions: Sciatica, [id number], Chronic Back Pain, [id number] Forms: ED Department Discharge Care Plan Goals: The patient was advised of the examination results during the visit. The patient was given an injection of Solu Medrol and Norflex while in the ED. The patient was discharged with a script for Prednisone (20 mg) #10 to take 2 by mouth daily for 5 days and Flexeril (10 mg) #10 to take 1 by mouth at bedtime. The patient was encouraged to follow-up with his primary care facility for continued evaluation and further management. If the patient has any additional symptoms or concerns, the patient should either return to the emergency department or visit his primary care facility. Sepsis Event Note (ED) - Focused Exam Vital Signs: Vital Signs Temp Pulse Resp BP Pulse Ox 08/27/20 21:24 36.9 C 111 H 18 152/102 H 97
[2020-08-27 22:12] VITALS: BP 126/93
== END 2020-08-27 22:17 | disposition home or self-care (01) ==
LOC: DL.ED 20:55
DX: M54.42 Lumbago with sciatica, left side (principal); E78.00 Pure hypercholesterolemia, unspecified; I10 Essential (primary) hypertension; K21.9 Gastro-esophageal reflux disease without esophagitis; E11.9 Type 2 diabetes mellitus without complications; Z79.4 Long term (current) use of insulin; Z79.899 Other long term (current) drug therapy
CPT/HCPCS: 96372; 99283; J2360; J2930

== ENCOUNTER 2020-08-29 11:24 | Emergency (ER) | payer MEDICARE, MEDICAID ==
[2020-08-29 11:47] VITALS: BP 153/94; PULSE 77
[2020-08-29] MEDS ORDERED: HYDROmorphone 1 MG/ML Syringe IM ONE (12:30)
--- NOTE | 2020-08-29 15:32 | EDM.PDOC ---
Scribed by Kaylee Beasley 08/29/20 [id number] for Maribell Castro NP ED HPI GENERAL MEDICAL PROBLEM - General Chief Complaint: Back Pain or Injury Stated Complaint: BACK/LEG PAIN Time Seen by Provider: 08/29/20 12:19 Source of Information: Reports: Patient, RN, RN Notes Reviewed History Limitations: Reports: No Limitations - History of Present Illness INITIAL COMMENTS - FREE TEXT/NARRATIVE: Patient is a 55-year-old male who presents to ER with complaint of left hip, lower back, and left leg pain. Began last Monday and progressively getting worse. Denies fall or recent injuries. Patient admits to chronic back pain. States unable to sit up, lay down, etc. all positions uncomfortable. Recent gallbladder surgery on , August 20, 2020. He went to PT last month. He has a history of diabetes. He was seen in the ER on , August 27, 2020 and given steroids and muscle relaxants. He has burning and constant pain in left leg. He also has numbness in the left foot which is not new. He denies saddle anesthesia or incontinence of bowel or bladder. Denies urinary symptoms such as frequency, urgency, or burning with urination. Onset: Gradual Duration: Constant Location: Reports: Back (and hip), Lower Extremity, Left Quality: Reports: Ache Severity: Severe Improves with: Reports: None Worsens with: Reports: None Associated Symptoms: Reports: No Other Symptoms Left Leg Pain Score (Numeric/FACES): 7 - Related Data Allergies Allergy/AdvReac Type Severity Reaction Status Date / Time No Known Allergies Allergy Verified 08/29/20 11:46 Home Meds: Home Meds Insulin Detemir [Levemir] 60 unit SQ BID 10/27/14 [History] Gabapentin [Neurontin] 600 mg PO TID 06/01/20 [History] Hydrocodone/Acetaminophen [Hydrocodone-Acetamin 5-325 mg] 1 - 2 tab PO Q4HR PRN 08/27/20 [History] Insulin Aspart [NovoLOG] 10 unit SQ ASDIRECTED 08/27/20 [History] Omeprazole 20 mg PO DAILY 08/27/20 [History] Pioglitazone [Actos] 45 mg PO DAILY 08/27/20 [History] Pravastatin [Pravachol] 20 mg PO DAILY 08/27/20 [History] lisinopriL [Lisinopril] 5 mg PO DAILY 08/27/20 [History] Past Medical History HEENT History: Reports: None Cardiovascular History: Reports: High Cholesterol, Hypertension Respiratory History: Reports: SOB Gastrointestinal History: Reports: Diverticulosis, GERD, Hepatitis Genitourinary History: Reports: None Musculoskeletal History: Reports: Back Pain, Chronic, Other (See Below) Other Musculoskeletal History: Back injury several years ago Neurological History: Reports: None Psychiatric History: Reports: None Endocrine/Metabolic History: Reports: Diabetes, Type II, Obesity/BMI 30+ Hematologic History: Reports: None Immunologic History: Reports: None Oncologic (Cancer) History: Reports: None Dermatologic History: Reports: None - Infectious Disease History Infectious Disease History: Reports: Hepatitis C - Past Surgical History Head Surgeries/Procedures: Reports: None HEENT Surgical History: Reports: None Cardiovascular Surgical History: Reports: Coronary Artery Stent GI Surgical History: Reports: Cholecystectomy, Colonoscopy, EGD Male Surgical History: Reports: None Endocrine Surgical History: Reports: None Neurological Surgical History: Reports: Lumbar Spine Other Neurological Surgeries/Procedures: "LOWER BACK" SURGERY Musculoskeletal Surgical History: Reports: Other (See Below) Other Musculoskeletal Surgeries/Procedures:: Back surgery 2011 Social & Family History - Family History Family Medical History: No Pertinent Family History - Tobacco Use Tobacco Use Status *Q: Never Tobacco User - Caffeine Use Caffeine Use: Reports: None - Recreational Drug Use Recreational Drug Use: No ED ROS GENERAL - Review of Systems Review Of Systems: Comprehensive ROS is negative, except as noted in HPI. ED EXAM,LOWER BACK PAIN/INJURY - Physical Exam Exam: See Below Exam Limited By: No Limitations General Appearance: Alert, WD/WN, Moderate Distress Eye Exam: Bilateral Eye: EOMI, Normal Inspection, PERRL Ears: Normal External Exam, Normal Canal, Hearing Grossly Normal, Normal TMs Nose: Normal Inspection, Normal Mucosa, No Blood Throat/Mouth: Normal Inspection, Normal Lips, Normal Teeth, Normal Gums, Normal Oropharynx, Normal Voice, No Airway Compromise Head: Atraumatic, Normocephalic Neck: Normal Inspection, Supple, Non-Tender, Full Range of Motion Respiratory/Chest: No Respiratory Distress, Lungs Clear, Normal Breath Sounds, No Accessory Muscle Use, Chest Non-Tender Cardiovascular: Normal Peripheral Pulses, Regular Rate, Rhythm, No Edema, No Gallop, No JVD, No Murmur, No Rub GI/Abdominal: Tender (recent surgery) (Male) Exam: Deferred Rectal (Males) Exam: Deferred Back Exam: Normal Inspection, Full Range of Motion, NT Extremities: Other (decreased range of motion left leg and pain in left hip. ) Neurological: Alert, Normal Mood/Affect, Normal Dorsiflexion, CN II-XII Intact, Normal Plantar Flexion, Normal Gait, Normal Reflexes, No Motor/Sensory Deficits, Oriented x 3 Psychiatric: Normal Affect, Normal Mood Skin Exam: Warm, Dry, Intact, Normal Color, No Rash Lymphatic: No Adenopathy Course - Vital Signs Last Recorded V/S: Last Vital Signs Temp 97.6 F 08/29/20 11:46 Pulse 77 08/29/20 11:46 Resp 16 08/29/20 11:46 BP 153/94 H 08/29/20 11:46 Pulse Ox 100 08/29/20 11:46 - Orders/Labs/Meds Meds: Medications Discontinued Medications Generic Name Dose Route Start Last Admin Trade Name Valdezq PRN Reason Stop Dose Admin Hydromorphone HCl 1 mg 08/29/20 12:30 08/29/20 12:59 Hydromorphone 1 Mg/Ml Syringe IM 08/29/20 12:31 1 mg ONETIME ONE Administration Departure - Departure Time of Disposition: 13:18 Disposition: Home, Self-Care 01 Condition: Fair Clinical Impression: Left sciatic nerve pain - Discharge Information *PRESCRIPTION DRUG MONITORING PROGRAM REVIEWED*: No *COPY OF PRESCRIPTION DRUG MONITORING REPORT IN PATIENT MARGE: No Instructions: Back Injury Prevention, [id number], Sciatica, [id number], Muscle Strain, [id number], Chronic Back Pain, [id number] Referrals: PCP,None [Ordering Only Provider] - Forms: ED Department Discharge Additional Instructions: Continue taking the meds earlier prescribed, prednisone, cyclobenzaprine as directed Follow-up with your primary care provider in the clinic next week Follow-up with physical therapy as well Rest Alternate heat and ice Sepsis Event Note (ED) - Evaluation Sepsis Screening Result: No Definite Risk - Focused Exam Vital Signs: Vital Signs Temp Pulse Resp BP Pulse Ox 08/29/20 11:46 97.6 F 77 16 153/94 H 100 I have read and agree with the documentation that has been completed regarding this visit. By signing this record, I attest that the documentation was com pleted in my physical presence and is an accurate record of the encounter.
== END 2020-08-29 13:18 | disposition home or self-care (01) ==
LOC: DL.ED 11:24
DX: M54.42 Lumbago with sciatica, left side (principal); E78.00 Pure hypercholesterolemia, unspecified; I10 Essential (primary) hypertension; E11.9 Type 2 diabetes mellitus without complications; E66.9 Obesity, unspecified; K21.9 Gastro-esophageal reflux disease without esophagitis; Z79.4 Long term (current) use of insulin; Z79.899 Other long term (current) drug therapy; Z68.36 Body mass index [BMI] 36.0-36.9, adult
CPT/HCPCS: 96372; 99283; J1170

== ENCOUNTER 2022-07-19 10:38 | Inpatient (IN) | payer MEDICARE ==
[2022-07-19] MEDS ORDERED: Polyethylene Glycol 3350 Powder 17 GM Packet PO PRN (14:20)
[2022-07-19] MEDS ORDERED: Acetaminophen 325 MG Tab PO PRN (14:20)
[2022-07-19] MEDS ORDERED: Albuterol/Ipratropium 3.0-0.5 MG/3 ML Neb Soln NEB PRN (14:20)
[2022-07-19] MEDS ORDERED: Ondansetron 4 MG/2 ML SDV IVPUSH PRN (14:20)
[2022-07-19] MEDS ORDERED: Glucagon,Human Recombinant 1 MG Vial IM PRN ×2 (14:23→14:26)
[2022-07-19] MEDS ORDERED: 50% Dextrose in Water 50 ML Syringe IVPUSH PRN ×2 (14:23→14:26)
[2022-07-19] MEDS: Acetaminophen/HYDROcodone 325-5 MG Tab PO PRN ×2 (14:54→19:52)
[2022-07-19] MEDS: ceFAZolin 2 GM Vial IV SCH ×2 (15:05→21:47)
[2022-07-19] MEDS ORDERED: Insulin Lispro 100 Units/ML 3 ML Vial SUBCUT SCH ×2 (16:00→18:00)
[2022-07-19] MEDS: Insulin Lispro 100 Units/ML 3 ML Vial SUBCUT SCH ×3 (17:36→21:45)
[2022-07-19] MEDS: Acetaminophen 500 MG Tab PO SCH (21:41)
[2022-07-19] MEDS: atorvaSTATin 20 MG Tab PO SCH (21:41)
[2022-07-19] MEDS: Insulin Glarg,Human.Rec.Analog 100 Unit/ML SUBCUT SCH (21:43)
[2022-07-19] MEDS: Melatonin 3 MG Tab PO PRN (22:21)
[2022-07-20] MEDS: Acetaminophen/HYDROcodone 325-5 MG Tab PO PRN ×3 (01:56→14:17)
[2022-07-20] MEDS: Acetaminophen 500 MG Tab PO SCH ×2 (06:19→21:53)
[2022-07-20] MEDS: ceFAZolin 2 GM Vial IV SCH ×3 (06:20→21:53)
[2022-07-20] MEDS: Ibuprofen 800 MG Tab PO SCH (08:21)
[2022-07-20] MEDS: Lisinopril 5 MG Tab PO SCH (08:22)
[2022-07-20] MEDS: Enoxaparin 40 MG/0.4 ML Syringe SUBCUT SCH (08:22)
[2022-07-20] MEDS: Aspirin 81 MG Tab.EC PO SCH (08:23)
[2022-07-20] MEDS: Polyethylene Glycol 3350 Powder 17 GM Packet PO SCH (08:24)
[2022-07-20] MEDS: Insulin Lispro 100 Units/ML 3 ML Vial SUBCUT SCH ×7 (08:40→21:54)
[2022-07-20] MEDS: oxyCODONE 5 MG Tab PO PRN ×2 (16:43→21:52)
[2022-07-20] MEDS: atorvaSTATin 20 MG Tab PO SCH (21:52)
[2022-07-20] MEDS: Melatonin 3 MG Tab PO PRN (21:52)
[2022-07-20] MEDS: Insulin Glarg,Human.Rec.Analog 100 Unit/ML SUBCUT SCH (21:53)
[2022-07-21] MEDS: oxyCODONE 5 MG Tab PO PRN ×4 (04:49→22:06)
[2022-07-21] MEDS: Acetaminophen 500 MG Tab PO SCH ×3 (05:00→22:05)
[2022-07-21] MEDS: ceFAZolin 2 GM Vial IV SCH ×3 (05:00→22:29)
[2022-07-21] MEDS: Enoxaparin 40 MG/0.4 ML Syringe SUBCUT SCH (08:30)
[2022-07-21] MEDS: Lisinopril 5 MG Tab PO SCH (08:31)
[2022-07-21] MEDS: Ibuprofen 800 MG Tab PO SCH (08:31)
[2022-07-21] MEDS: Polyethylene Glycol 3350 Powder 17 GM Packet PO SCH (08:31)
[2022-07-21] MEDS: Aspirin 81 MG Tab.EC PO SCH (08:31)
[2022-07-21] MEDS: Insulin Lispro 100 Units/ML 3 ML Vial SUBCUT SCH ×7 (08:36→22:10)
[2022-07-21] MEDS: Melatonin 3 MG Tab PO PRN (22:06)
[2022-07-21] MEDS: atorvaSTATin 20 MG Tab PO SCH (22:06)
[2022-07-21] MEDS: Insulin Glarg,Human.Rec.Analog 100 Unit/ML SUBCUT SCH (22:08)
[2022-07-21] MEDS: Sodium Chloride 0.9% 10 ML Syringe FLUSH PRN (22:29)
[2022-07-22] MEDS: oxyCODONE 5 MG Tab PO PRN ×5 (03:51→22:50)
[2022-07-22] MEDS: Acetaminophen 500 MG Tab PO SCH ×3 (05:47→21:41)
[2022-07-22] MEDS: ceFAZolin 2 GM Vial IV SCH ×3 (05:50→21:48)
[2022-07-22] MEDS: Sodium Chloride 0.9% 10 ML Syringe FLUSH PRN ×2 (06:02→21:48)
[2022-07-22] MEDS: Ibuprofen 800 MG Tab PO SCH (08:00)
[2022-07-22] MEDS: Aspirin 81 MG Tab.EC PO SCH (08:01)
[2022-07-22] MEDS: Lisinopril 5 MG Tab PO SCH (08:01)
[2022-07-22] MEDS: Enoxaparin 40 MG/0.4 ML Syringe SUBCUT SCH (08:02)
[2022-07-22] MEDS: Polyethylene Glycol 3350 Powder 17 GM Packet PO SCH (08:02)
[2022-07-22] MEDS: Insulin Lispro 100 Units/ML 3 ML Vial SUBCUT SCH ×7 (08:04→21:44)
[2022-07-22] MEDS: atorvaSTATin 20 MG Tab PO SCH (21:40)
[2022-07-22] MEDS: Melatonin 3 MG Tab PO PRN (21:40)
[2022-07-22] MEDS: Insulin Glarg,Human.Rec.Analog 100 Unit/ML SUBCUT SCH (21:45)
[2022-07-23] MEDS: Sodium Chloride 0.9% 10 ML Syringe FLUSH PRN ×3 (02:44→22:55)
[2022-07-23] MEDS: Ketorolac 30 MG/ML SDV IVPUSH PRN ×2 (02:44→18:47)
[2022-07-23] MEDS: Acetaminophen 500 MG Tab PO SCH ×3 (05:10→21:49)
[2022-07-23] MEDS: oxyCODONE 5 MG Tab PO PRN ×4 (05:10→23:05)
[2022-07-23] MEDS: ceFAZolin 2 GM Vial IV SCH ×3 (05:22→22:55)
[2022-07-23] MEDS: Polyethylene Glycol 3350 Powder 17 GM Packet PO SCH (08:25)
[2022-07-23] MEDS: Insulin Lispro 100 Units/ML 3 ML Vial SUBCUT SCH ×7 (08:28→21:59)
[2022-07-23] MEDS: Enoxaparin 40 MG/0.4 ML Syringe SUBCUT SCH (08:30)
[2022-07-23] MEDS: Aspirin 81 MG Tab.EC PO SCH (08:32)
[2022-07-23] MEDS: Lisinopril 5 MG Tab PO SCH (08:32)
[2022-07-23] MEDS: Ibuprofen 800 MG Tab PO SCH (08:32)
[2022-07-23] MEDS ORDERED: Insulin Lispro 100 Units/ML 3 ML Vial SUBCUT ONE (21:14)
[2022-07-23] MEDS: Insulin Glarg,Human.Rec.Analog 100 Unit/ML SUBCUT SCH (21:47)
[2022-07-23] MEDS: Melatonin 3 MG Tab PO PRN (21:56)
[2022-07-23] MEDS: atorvaSTATin 20 MG Tab PO SCH (21:56)
[2022-07-24] MEDS: Sodium Chloride 0.9% 10 ML Syringe FLUSH PRN ×3 (00:51→22:30)
[2022-07-24] MEDS: Ketorolac 30 MG/ML SDV IVPUSH PRN ×3 (00:52→22:29)
[2022-07-24] MEDS: oxyCODONE 5 MG Tab PO PRN ×4 (05:02→20:07)
[2022-07-24] MEDS: Acetaminophen 500 MG Tab PO SCH ×3 (05:03→22:34)
[2022-07-24] MEDS: ceFAZolin 2 GM Vial IV SCH ×3 (06:08→22:32)
[2022-07-24] MEDS: Enoxaparin 40 MG/0.4 ML Syringe SUBCUT SCH (09:01)
[2022-07-24] MEDS: Insulin Lispro 100 Units/ML 3 ML Vial SUBCUT SCH ×7 (09:03→20:12)
[2022-07-24] MEDS: Ibuprofen 800 MG Tab PO SCH (09:05)
[2022-07-24] MEDS: Aspirin 81 MG Tab.EC PO SCH (09:05)
[2022-07-24] MEDS: Polyethylene Glycol 3350 Powder 17 GM Packet PO SCH (09:05)
[2022-07-24] MEDS: Lisinopril 5 MG Tab PO SCH (09:06)
[2022-07-24] MEDS: atorvaSTATin 20 MG Tab PO SCH (20:08)
[2022-07-24] MEDS: Insulin Glarg,Human.Rec.Analog 100 Unit/ML SUBCUT SCH (20:13)
[2022-07-24] MEDS: Melatonin 3 MG Tab PO PRN (22:34)
[2022-07-25] MEDS: oxyCODONE 5 MG Tab PO PRN ×5 (01:38→21:33)
[2022-07-25] MEDS: ceFAZolin 2 GM Vial IV SCH ×3 (06:38→22:17)
[2022-07-25] MEDS: Acetaminophen 500 MG Tab PO SCH ×3 (06:38→22:16)
[2022-07-25 07:36] LABS: ANION GAP 9.4 mEq/L (7-13)
[2022-07-25] MEDS: Insulin Lispro 100 Units/ML 3 ML Vial SUBCUT SCH ×5 (08:33→21:42)
[2022-07-25] MEDS: Ibuprofen 800 MG Tab PO SCH (08:34)
[2022-07-25] MEDS: Polyethylene Glycol 3350 Powder 17 GM Packet PO SCH (08:35)
[2022-07-25] MEDS: Lisinopril 5 MG Tab PO SCH (08:35)
[2022-07-25] MEDS: Enoxaparin 40 MG/0.4 ML Syringe SUBCUT SCH (08:35)
[2022-07-25] MEDS: Aspirin 81 MG Tab.EC PO SCH (08:35)
[2022-07-25] MEDS: Sodium Chloride 0.9% 10 ML Syringe FLUSH PRN (14:26)
[2022-07-25] MEDS: atorvaSTATin 20 MG Tab PO SCH (20:10)
[2022-07-25] MEDS: Ketorolac 30 MG/ML SDV IVPUSH PRN (20:11)
[2022-07-25] MEDS: Insulin Glarg,Human.Rec.Analog 100 Unit/ML SUBCUT SCH (21:41)
[2022-07-25] MEDS: Melatonin 3 MG Tab PO PRN (22:16)
[2022-07-26] MEDS: oxyCODONE 5 MG Tab PO PRN ×5 (01:30→22:03)
[2022-07-26] MEDS: Acetaminophen 500 MG Tab PO SCH ×3 (05:53→22:01)
[2022-07-26] MEDS: ceFAZolin 2 GM Vial IV SCH ×3 (05:55→22:05)
[2022-07-26] MEDS: Polyethylene Glycol 3350 Powder 17 GM Packet PO SCH (08:10)
[2022-07-26] MEDS: Enoxaparin 40 MG/0.4 ML Syringe SUBCUT SCH (08:10)
[2022-07-26] MEDS: Ibuprofen 800 MG Tab PO SCH (08:11)
[2022-07-26] MEDS: Lisinopril 5 MG Tab PO SCH (08:11)
[2022-07-26] MEDS: Aspirin 81 MG Tab.EC PO SCH (08:12)
[2022-07-26] MEDS: Insulin Lispro 100 Units/ML 3 ML Vial SUBCUT SCH ×4 (08:13→20:32)
[2022-07-26] MEDS: Insulin Glarg,Human.Rec.Analog 100 Unit/ML SUBCUT SCH ×2 (08:13→20:32)
[2022-07-26] MEDS: Sodium Chloride 0.9% 10 ML Syringe FLUSH PRN ×2 (14:38→22:05)
[2022-07-26] MEDS: Ketorolac 30 MG/ML SDV IVPUSH PRN (19:42)
[2022-07-26] MEDS: atorvaSTATin 20 MG Tab PO SCH (20:27)
[2022-07-26] MEDS: Melatonin 3 MG Tab PO PRN (22:03)
[2022-07-27] MEDS: oxyCODONE 5 MG Tab PO PRN ×4 (02:49→21:57)
[2022-07-27] MEDS: Acetaminophen 500 MG Tab PO SCH ×3 (06:10→21:47)
[2022-07-27] MEDS: ceFAZolin 2 GM Vial IV SCH ×3 (06:14→21:46)
[2022-07-27] MEDS: Polyethylene Glycol 3350 Powder 17 GM Packet PO SCH (09:21)
[2022-07-27] MEDS: Enoxaparin 40 MG/0.4 ML Syringe SUBCUT SCH (09:21)
[2022-07-27] MEDS: Lisinopril 5 MG Tab PO SCH (09:22)
[2022-07-27] MEDS: Ibuprofen 800 MG Tab PO SCH ×3 (09:24→18:53)
[2022-07-27] MEDS ORDERED: oxyCODONE ER 10 MG TAB.ER PO ONE (09:26)
[2022-07-27] MEDS: Insulin Lispro 100 Units/ML 3 ML Vial SUBCUT SCH ×4 (09:27→21:57)
[2022-07-27] MEDS: Insulin Glarg,Human.Rec.Analog 100 Unit/ML SUBCUT SCH ×2 (09:28→21:49)
[2022-07-27] MEDS: Aspirin 81 MG Tab.EC PO SCH (09:31)
[2022-07-27] MEDS: oxyCODONE ER 10 MG TAB.ER PO SCH (21:46)
[2022-07-27] MEDS: atorvaSTATin 20 MG Tab PO SCH (21:47)
[2022-07-27] MEDS: Melatonin 3 MG Tab PO PRN (21:47)
[2022-07-28] MEDS: Acetaminophen 500 MG Tab PO SCH ×3 (05:14→21:08)
[2022-07-28] MEDS: ceFAZolin 2 GM Vial IV SCH ×3 (05:14→21:11)
[2022-07-28] MEDS: oxyCODONE 5 MG Tab PO PRN ×2 (05:14→21:27)
[2022-07-28] MEDS: Insulin Lispro 100 Units/ML 3 ML Vial SUBCUT SCH ×4 (07:58→21:42)
[2022-07-28] MEDS: Enoxaparin 40 MG/0.4 ML Syringe SUBCUT SCH (08:00)
[2022-07-28] MEDS: oxyCODONE ER 10 MG TAB.ER PO SCH ×2 (08:01→21:08)
[2022-07-28] MEDS: Lisinopril 5 MG Tab PO SCH (08:02)
[2022-07-28] MEDS: Aspirin 81 MG Tab.EC PO SCH (08:03)
[2022-07-28] MEDS: Polyethylene Glycol 3350 Powder 17 GM Packet PO SCH (08:03)
[2022-07-28] MEDS: Ibuprofen 800 MG Tab PO SCH (08:03)
[2022-07-28] MEDS: Insulin Glarg,Human.Rec.Analog 100 Unit/ML SUBCUT SCH ×2 (08:31→21:41)
[2022-07-28] MEDS ORDERED: Acetaminophen 500 MG Tab PO ONE (14:00)
[2022-07-28] MEDS ORDERED: oxyCODONE 5 MG Tab PO ONE (14:00)
[2022-07-28] MEDS: atorvaSTATin 20 MG Tab PO SCH (21:09)
[2022-07-28] MEDS: Melatonin 3 MG Tab PO PRN (21:27)
[2022-07-29] MEDS: oxyCODONE 5 MG Tab PO PRN ×3 (04:48→22:37)
[2022-07-29] MEDS: Acetaminophen 500 MG Tab PO SCH ×3 (06:03→22:37)
[2022-07-29] MEDS: ceFAZolin 2 GM Vial IV SCH ×3 (06:05→22:39)
[2022-07-29] MEDS: Enoxaparin 40 MG/0.4 ML Syringe SUBCUT SCH (08:20)
[2022-07-29] MEDS: Insulin Glarg,Human.Rec.Analog 100 Unit/ML SUBCUT SCH ×2 (08:21→21:14)
[2022-07-29] MEDS: Ibuprofen 800 MG Tab PO SCH (08:21)
[2022-07-29] MEDS: Aspirin 81 MG Tab.EC PO SCH (08:22)
[2022-07-29] MEDS: oxyCODONE ER 10 MG TAB.ER PO SCH ×2 (08:22→21:07)
[2022-07-29] MEDS: Lisinopril 5 MG Tab PO SCH (08:22)
[2022-07-29] MEDS: Insulin Lispro 100 Units/ML 3 ML Vial SUBCUT SCH ×4 (08:25→21:16)
[2022-07-29] MEDS: Polyethylene Glycol 3350 Powder 17 GM Packet PO SCH (08:25)
[2022-07-29] MEDS: atorvaSTATin 20 MG Tab PO SCH (21:07)
[2022-07-29] MEDS: Melatonin 3 MG Tab PO PRN (22:36)
[2022-07-30] MEDS: Acetaminophen 500 MG Tab PO SCH ×3 (05:53→21:07)
[2022-07-30] MEDS: ceFAZolin 2 GM Vial IV SCH ×3 (05:53→21:06)
[2022-07-30] MEDS: oxyCODONE 5 MG Tab PO PRN ×3 (06:46→21:07)
[2022-07-30] MEDS: Enoxaparin 40 MG/0.4 ML Syringe SUBCUT SCH (08:16)
[2022-07-30] MEDS: Ibuprofen 800 MG Tab PO SCH (08:16)
[2022-07-30] MEDS: Insulin Glarg,Human.Rec.Analog 100 Unit/ML SUBCUT SCH ×2 (08:16→21:10)
[2022-07-30] MEDS: oxyCODONE ER 10 MG TAB.ER PO SCH ×2 (08:17→21:07)
[2022-07-30] MEDS: Aspirin 81 MG Tab.EC PO SCH (08:17)
[2022-07-30] MEDS: Insulin Lispro 100 Units/ML 3 ML Vial SUBCUT SCH ×4 (08:33→21:16)
[2022-07-30] MEDS: Lisinopril 5 MG Tab PO SCH (08:58)
[2022-07-30] MEDS: Polyethylene Glycol 3350 Powder 17 GM Packet PO SCH (09:03)
[2022-07-30] MEDS: glyBURIDE 5 MG Tab PO SCH (16:56)
[2022-07-30] MEDS: atorvaSTATin 20 MG Tab PO SCH (21:07)
[2022-07-30] MEDS: Melatonin 3 MG Tab PO PRN (21:07)
[2022-07-31] MEDS: ceFAZolin 2 GM Vial IV SCH ×3 (05:50→21:34)
[2022-07-31] MEDS: Acetaminophen 500 MG Tab PO SCH ×3 (05:50→21:34)
[2022-07-31] MEDS: oxyCODONE 5 MG Tab PO PRN ×2 (05:50→21:35)
[2022-07-31] MEDS: glyBURIDE 5 MG Tab PO SCH ×2 (05:51→16:14)
[2022-07-31] MEDS: Ibuprofen 800 MG Tab PO SCH (08:45)
[2022-07-31] MEDS: Enoxaparin 40 MG/0.4 ML Syringe SUBCUT SCH (08:46)
[2022-07-31] MEDS: Lisinopril 5 MG Tab PO SCH (08:46)
[2022-07-31] MEDS: oxyCODONE ER 10 MG TAB.ER PO SCH ×2 (08:47→21:35)
[2022-07-31] MEDS: Aspirin 81 MG Tab.EC PO SCH (08:47)
[2022-07-31] MEDS: Insulin Lispro 100 Units/ML 3 ML Vial SUBCUT SCH ×4 (08:48→21:34)
[2022-07-31] MEDS: Polyethylene Glycol 3350 Powder 17 GM Packet PO SCH (08:48)
[2022-07-31] MEDS: Insulin Glarg,Human.Rec.Analog 100 Unit/ML SUBCUT SCH ×2 (08:50→21:33)
[2022-07-31] MEDS: atorvaSTATin 20 MG Tab PO SCH (21:35)
[2022-07-31] MEDS: Melatonin 3 MG Tab PO PRN (21:35)
[2022-08-01] MEDS: ceFAZolin 2 GM Vial IV SCH ×3 (05:27→21:25)
[2022-08-01] MEDS: glyBURIDE 5 MG Tab PO SCH ×2 (05:28→16:59)
[2022-08-01] MEDS: oxyCODONE 5 MG Tab PO PRN ×3 (05:28→23:50)
[2022-08-01] MEDS: Acetaminophen 500 MG Tab PO SCH ×3 (05:28→21:25)
[2022-08-01 06:38] LABS: ANION GAP 10.6 mEq/L (7-13)
[2022-08-01] MEDS: Sodium Chloride 0.9% 10 ML Syringe FLUSH PRN (09:09)
[2022-08-01] MEDS: Ibuprofen 800 MG Tab PO SCH (09:11)
[2022-08-01] MEDS: Enoxaparin 40 MG/0.4 ML Syringe SUBCUT SCH (09:11)
[2022-08-01] MEDS: oxyCODONE ER 10 MG TAB.ER PO SCH ×2 (09:12→21:24)
[2022-08-01] MEDS: Aspirin 81 MG Tab.EC PO SCH (09:12)
[2022-08-01] MEDS: Lisinopril 5 MG Tab PO SCH (09:12)
[2022-08-01] MEDS: Polyethylene Glycol 3350 Powder 17 GM Packet PO SCH (09:13)
[2022-08-01] MEDS: Insulin Glarg,Human.Rec.Analog 100 Unit/ML SUBCUT SCH ×2 (09:13→21:25)
[2022-08-01] MEDS: Insulin Lispro 100 Units/ML 3 ML Vial SUBCUT SCH ×4 (09:16→21:28)
[2022-08-01] MEDS: atorvaSTATin 20 MG Tab PO SCH (21:25)
[2022-08-01] MEDS: Melatonin 3 MG Tab PO PRN (21:34)
[2022-08-02] MEDS: ceFAZolin 2 GM Vial IV SCH ×3 (05:20→21:06)
[2022-08-02] MEDS: Acetaminophen 500 MG Tab PO SCH ×3 (05:20→21:06)
[2022-08-02] MEDS: glyBURIDE 5 MG Tab PO SCH ×2 (05:21→16:27)
[2022-08-02] MEDS: Insulin Lispro 100 Units/ML 3 ML Vial SUBCUT SCH ×4 (08:00→21:11)
[2022-08-02] MEDS: Ibuprofen 800 MG Tab PO SCH (08:01)
[2022-08-02] MEDS: Aspirin 81 MG Tab.EC PO SCH (08:02)
[2022-08-02] MEDS: Polyethylene Glycol 3350 Powder 17 GM Packet PO SCH (08:03)
[2022-08-02] MEDS: Enoxaparin 40 MG/0.4 ML Syringe SUBCUT SCH (08:03)
[2022-08-02] MEDS: Lisinopril 5 MG Tab PO SCH (08:03)
[2022-08-02] MEDS: oxyCODONE ER 10 MG TAB.ER PO SCH ×2 (08:04→21:07)
[2022-08-02] MEDS: Sodium Chloride 0.9% 10 ML Syringe FLUSH PRN (08:05)
[2022-08-02] MEDS: Insulin Glarg,Human.Rec.Analog 100 Unit/ML SUBCUT SCH ×2 (08:06→21:12)
[2022-08-02] MEDS: oxyCODONE 5 MG Tab PO PRN ×2 (14:04→21:08)
[2022-08-02] MEDS: Melatonin 3 MG Tab PO PRN (21:06)
[2022-08-02] MEDS: atorvaSTATin 20 MG Tab PO SCH (21:07)
[2022-08-03] MEDS: oxyCODONE 5 MG Tab PO PRN ×3 (05:33→23:41)
[2022-08-03] MEDS: Acetaminophen 500 MG Tab PO SCH ×3 (05:33→21:10)
[2022-08-03] MEDS: glyBURIDE 5 MG Tab PO SCH ×2 (05:34→15:27)
[2022-08-03] MEDS: ceFAZolin 2 GM Vial IV SCH ×3 (05:34→21:09)
[2022-08-03] MEDS: Insulin Glarg,Human.Rec.Analog 100 Unit/ML SUBCUT SCH ×2 (08:17→21:08)
[2022-08-03] MEDS: Insulin Lispro 100 Units/ML 3 ML Vial SUBCUT SCH ×4 (08:22→21:09)
[2022-08-03] MEDS: Aspirin 81 MG Tab.EC PO SCH (09:31)
[2022-08-03] MEDS: Lisinopril 5 MG Tab PO SCH (09:31)
[2022-08-03] MEDS: Ibuprofen 800 MG Tab PO SCH (09:32)
[2022-08-03] MEDS: oxyCODONE ER 10 MG TAB.ER PO SCH ×2 (09:34→21:10)
[2022-08-03] MEDS: Enoxaparin 40 MG/0.4 ML Syringe SUBCUT SCH (09:35)
[2022-08-03] MEDS: Polyethylene Glycol 3350 Powder 17 GM Packet PO SCH (09:36)
[2022-08-03] MEDS: atorvaSTATin 20 MG Tab PO SCH (21:10)
[2022-08-03] MEDS: Melatonin 3 MG Tab PO PRN (21:11)
[2022-08-04] MEDS: ceFAZolin 2 GM Vial IV SCH ×3 (05:37→21:14)
[2022-08-04] MEDS: Acetaminophen 500 MG Tab PO SCH ×3 (05:37→21:14)
[2022-08-04] MEDS: oxyCODONE 5 MG Tab PO PRN ×3 (05:38→21:15)
[2022-08-04] MEDS: glyBURIDE 5 MG Tab PO SCH ×2 (08:39→17:07)
[2022-08-04] MEDS: Ibuprofen 800 MG Tab PO SCH (08:40)
[2022-08-04] MEDS: oxyCODONE ER 10 MG TAB.ER PO SCH ×2 (08:41→21:15)
[2022-08-04] MEDS: Enoxaparin 40 MG/0.4 ML Syringe SUBCUT SCH (08:42)
[2022-08-04] MEDS: Aspirin 81 MG Tab.EC PO SCH (08:42)
[2022-08-04] MEDS: Lisinopril 5 MG Tab PO SCH (08:42)
[2022-08-04] MEDS: Insulin Lispro 100 Units/ML 3 ML Vial SUBCUT SCH ×4 (08:43→21:14)
[2022-08-04] MEDS: Insulin Glarg,Human.Rec.Analog 100 Unit/ML SUBCUT SCH ×2 (08:51→21:13)
[2022-08-04] MEDS: Polyethylene Glycol 3350 Powder 17 GM Packet PO SCH (10:12)
[2022-08-04] MEDS: atorvaSTATin 20 MG Tab PO SCH (21:15)
[2022-08-04] MEDS: Melatonin 3 MG Tab PO PRN (21:15)
[2022-08-05] MEDS: oxyCODONE 5 MG Tab PO PRN ×3 (03:42→21:07)
[2022-08-05] MEDS: Acetaminophen 500 MG Tab PO SCH ×3 (05:41→21:08)
[2022-08-05] MEDS: ceFAZolin 2 GM Vial IV SCH ×3 (05:43→21:33)
[2022-08-05] MEDS: Insulin Lispro 100 Units/ML 3 ML Vial SUBCUT SCH ×4 (07:46→21:30)
[2022-08-05] MEDS: glyBURIDE 5 MG Tab PO SCH ×2 (07:46→16:53)
[2022-08-05] MEDS: Aspirin 81 MG Tab.EC PO SCH (08:35)
[2022-08-05] MEDS: oxyCODONE ER 10 MG TAB.ER PO SCH ×2 (08:35→21:07)
[2022-08-05] MEDS: Lisinopril 5 MG Tab PO SCH (08:35)
[2022-08-05] MEDS: Ibuprofen 800 MG Tab PO SCH (08:36)
[2022-08-05] MEDS: Enoxaparin 40 MG/0.4 ML Syringe SUBCUT SCH (08:37)
[2022-08-05] MEDS: Polyethylene Glycol 3350 Powder 17 GM Packet PO SCH ×2 (08:37→08:47)
[2022-08-05] MEDS: Insulin Glarg,Human.Rec.Analog 100 Unit/ML SUBCUT SCH ×2 (08:40→21:28)
[2022-08-05] MEDS: Sodium Chloride 0.9% 10 ML Syringe FLUSH PRN ×2 (14:06→21:32)
[2022-08-05] MEDS: Melatonin 3 MG Tab PO PRN (21:06)
[2022-08-05] MEDS: atorvaSTATin 20 MG Tab PO SCH (21:08)
[2022-08-06] MEDS: oxyCODONE 5 MG Tab PO PRN ×3 (03:11→21:09)
[2022-08-06] MEDS: Acetaminophen 500 MG Tab PO SCH ×3 (06:03→21:10)
[2022-08-06] MEDS: Sodium Chloride 0.9% 10 ML Syringe FLUSH PRN ×2 (06:04→21:30)
[2022-08-06] MEDS: ceFAZolin 2 GM Vial IV SCH ×3 (06:05→21:30)
[2022-08-06] MEDS: Insulin Lispro 100 Units/ML 3 ML Vial SUBCUT SCH ×4 (07:51→21:25)
[2022-08-06] MEDS: glyBURIDE 5 MG Tab PO SCH ×2 (07:58→15:44)
[2022-08-06] MEDS: oxyCODONE ER 10 MG TAB.ER PO SCH ×2 (08:00→21:08)
[2022-08-06] MEDS: Lisinopril 5 MG Tab PO SCH (08:00)
[2022-08-06] MEDS: Ibuprofen 800 MG Tab PO SCH (08:00)
[2022-08-06] MEDS: Aspirin 81 MG Tab.EC PO SCH (08:00)
[2022-08-06] MEDS: Insulin Glarg,Human.Rec.Analog 100 Unit/ML SUBCUT SCH ×2 (08:04→21:27)
[2022-08-06] MEDS: Polyethylene Glycol 3350 Powder 17 GM Packet PO SCH (08:05)
[2022-08-06] MEDS: Enoxaparin 40 MG/0.4 ML Syringe SUBCUT SCH (08:06)
[2022-08-06] MEDS: atorvaSTATin 20 MG Tab PO SCH (21:10)
[2022-08-06] MEDS: Melatonin 3 MG Tab PO PRN (21:10)
[2022-08-07] MEDS: oxyCODONE 5 MG Tab PO PRN ×4 (03:38→21:32)
[2022-08-07] MEDS: Acetaminophen 500 MG Tab PO SCH ×3 (06:13→21:32)
[2022-08-07] MEDS: ceFAZolin 2 GM Vial IV SCH ×3 (06:14→21:31)
[2022-08-07] MEDS: Sodium Chloride 0.9% 10 ML Syringe FLUSH PRN ×2 (06:14→13:59)
[2022-08-07] MEDS: glyBURIDE 5 MG Tab PO SCH ×2 (07:31→16:35)
[2022-08-07] MEDS: Insulin Lispro 100 Units/ML 3 ML Vial SUBCUT SCH ×4 (08:30→21:33)
[2022-08-07] MEDS: Enoxaparin 40 MG/0.4 ML Syringe SUBCUT SCH (09:13)
[2022-08-07] MEDS: Aspirin 81 MG Tab.EC PO SCH (09:13)
[2022-08-07] MEDS: Lisinopril 5 MG Tab PO SCH (09:15)
[2022-08-07] MEDS: Ibuprofen 800 MG Tab PO SCH (09:15)
[2022-08-07] MEDS: oxyCODONE ER 10 MG TAB.ER PO SCH ×2 (09:15→21:32)
[2022-08-07] MEDS: Polyethylene Glycol 3350 Powder 17 GM Packet PO SCH (09:16)
[2022-08-07] MEDS: Insulin Glarg,Human.Rec.Analog 100 Unit/ML SUBCUT SCH ×2 (09:19→21:33)
[2022-08-07] MEDS: atorvaSTATin 20 MG Tab PO SCH (21:33)
[2022-08-07] MEDS: Melatonin 3 MG Tab PO PRN (21:33)
[2022-08-08] MEDS: Acetaminophen 500 MG Tab PO SCH ×3 (06:00→22:21)
[2022-08-08] MEDS: ceFAZolin 2 GM Vial IV SCH ×3 (06:01→22:28)
[2022-08-08 07:34] LABS: ANION GAP 10.2 mEq/L (7-13)
[2022-08-08] MEDS: oxyCODONE 5 MG Tab PO PRN ×3 (07:37→19:51)
[2022-08-08] MEDS: Insulin Lispro 100 Units/ML 3 ML Vial SUBCUT SCH ×4 (07:40→22:24)
[2022-08-08] MEDS: Aspirin 81 MG Tab.EC PO SCH (09:38)
[2022-08-08] MEDS: Enoxaparin 40 MG/0.4 ML Syringe SUBCUT SCH (09:38)
[2022-08-08] MEDS: Ibuprofen 800 MG Tab PO SCH (09:39)
[2022-08-08] MEDS: Lisinopril 5 MG Tab PO SCH (09:39)
[2022-08-08] MEDS: glyBURIDE 5 MG Tab PO SCH ×2 (09:39→16:23)
[2022-08-08] MEDS: oxyCODONE ER 10 MG TAB.ER PO SCH ×2 (09:40→22:20)
[2022-08-08] MEDS: Insulin Glarg,Human.Rec.Analog 100 Unit/ML SUBCUT SCH ×2 (09:42→22:23)
[2022-08-08] MEDS: Polyethylene Glycol 3350 Powder 17 GM Packet PO SCH (09:43)
[2022-08-08] MEDS: atorvaSTATin 20 MG Tab PO SCH (22:21)
[2022-08-08] MEDS: Melatonin 3 MG Tab PO PRN (22:22)
[2022-08-08] MEDS: Sodium Chloride 0.9% 10 ML Syringe FLUSH PRN (22:28)
[2022-08-09] MEDS: oxyCODONE 5 MG Tab PO PRN ×3 (04:13→19:31)
[2022-08-09] MEDS: Acetaminophen 500 MG Tab PO SCH ×3 (06:09→21:33)
[2022-08-09] MEDS: ceFAZolin 2 GM Vial IV SCH ×3 (06:10→21:39)
[2022-08-09] MEDS: Sodium Chloride 0.9% 10 ML Syringe FLUSH PRN (06:10)
[2022-08-09] MEDS: Enoxaparin 40 MG/0.4 ML Syringe SUBCUT SCH (08:50)
[2022-08-09] MEDS: Ibuprofen 800 MG Tab PO SCH (08:51)
[2022-08-09] MEDS: oxyCODONE ER 10 MG TAB.ER PO SCH ×2 (08:51→21:34)
[2022-08-09] MEDS: Aspirin 81 MG Tab.EC PO SCH (08:52)
[2022-08-09] MEDS: glyBURIDE 5 MG Tab PO SCH ×2 (08:52→15:38)
[2022-08-09] MEDS: Lisinopril 5 MG Tab PO SCH (08:52)
[2022-08-09] MEDS: Insulin Lispro 100 Units/ML 3 ML Vial SUBCUT SCH ×4 (08:53→21:57)
[2022-08-09] MEDS: Insulin Glarg,Human.Rec.Analog 100 Unit/ML SUBCUT SCH ×2 (08:55→21:56)
[2022-08-09] MEDS: Polyethylene Glycol 3350 Powder 17 GM Packet PO SCH (08:59)
[2022-08-09] MEDS: Melatonin 3 MG Tab PO PRN (21:33)
[2022-08-09] MEDS: atorvaSTATin 20 MG Tab PO SCH (21:33)
[2022-08-10] MEDS: oxyCODONE 5 MG Tab PO PRN ×4 (02:05→19:41)
[2022-08-10] MEDS: Acetaminophen 500 MG Tab PO SCH ×3 (05:45→21:10)
[2022-08-10] MEDS: Sodium Chloride 0.9% 10 ML Syringe FLUSH PRN ×3 (05:46→21:17)
[2022-08-10] MEDS: ceFAZolin 2 GM Vial IV SCH ×3 (05:46→21:17)
[2022-08-10] MEDS: glyBURIDE 5 MG Tab PO SCH ×2 (07:42→16:19)
[2022-08-10] MEDS: Insulin Lispro 100 Units/ML 3 ML Vial SUBCUT SCH ×4 (09:27→21:24)
[2022-08-10] MEDS: oxyCODONE ER 10 MG TAB.ER PO SCH ×2 (09:55→21:10)
[2022-08-10] MEDS: Aspirin 81 MG Tab.EC PO SCH (09:56)
[2022-08-10] MEDS: Ibuprofen 800 MG Tab PO SCH (09:56)
[2022-08-10] MEDS: Lisinopril 5 MG Tab PO SCH (09:56)
[2022-08-10] MEDS: Insulin Glarg,Human.Rec.Analog 100 Unit/ML SUBCUT SCH ×2 (09:57→21:12)
[2022-08-10] MEDS: Enoxaparin 40 MG/0.4 ML Syringe SUBCUT SCH (09:57)
[2022-08-10] MEDS: Polyethylene Glycol 3350 Powder 17 GM Packet PO SCH (10:01)
[2022-08-10] MEDS: Menthol 10%/Methyl Salicylate 15% 85 GM Tube TOP PRN ×2 (16:17→21:15)
[2022-08-10] MEDS: Melatonin 3 MG Tab PO PRN (21:10)
[2022-08-10] MEDS: atorvaSTATin 20 MG Tab PO SCH (21:10)
[2022-08-11] MEDS: oxyCODONE 5 MG Tab PO PRN ×3 (02:55→19:15)
[2022-08-11] MEDS: Menthol 10%/Methyl Salicylate 15% 85 GM Tube TOP PRN (05:27)
[2022-08-11] MEDS: Acetaminophen 500 MG Tab PO SCH ×3 (05:28→21:09)
[2022-08-11] MEDS: Sodium Chloride 0.9% 10 ML Syringe FLUSH PRN ×2 (05:30→14:07)
[2022-08-11] MEDS: ceFAZolin 2 GM Vial IV SCH ×3 (05:31→21:13)
[2022-08-11] MEDS: glyBURIDE 5 MG Tab PO SCH ×2 (07:35→17:03)
[2022-08-11] MEDS: Insulin Lispro 100 Units/ML 3 ML Vial SUBCUT SCH ×4 (08:58→21:12)
[2022-08-11] MEDS: Ibuprofen 800 MG Tab PO SCH (09:05)
[2022-08-11] MEDS: oxyCODONE ER 10 MG TAB.ER PO SCH ×2 (09:06→21:08)
[2022-08-11] MEDS: Lisinopril 5 MG Tab PO SCH (09:07)
[2022-08-11] MEDS: Aspirin 81 MG Tab.EC PO SCH (09:08)
[2022-08-11] MEDS: Insulin Glarg,Human.Rec.Analog 100 Unit/ML SUBCUT SCH ×2 (09:09→21:09)
[2022-08-11] MEDS: Polyethylene Glycol 3350 Powder 17 GM Packet PO SCH (09:10)
[2022-08-11] MEDS: Enoxaparin 40 MG/0.4 ML Syringe SUBCUT SCH (10:28)
[2022-08-11] MEDS: Melatonin 3 MG Tab PO PRN (21:08)
[2022-08-11] MEDS: atorvaSTATin 20 MG Tab PO SCH (21:08)
[2022-08-12] MEDS: Menthol 10%/Methyl Salicylate 15% 85 GM Tube TOP PRN ×2 (01:47→23:39)
[2022-08-12] MEDS: oxyCODONE 5 MG Tab PO PRN ×4 (02:38→19:51)
[2022-08-12] MEDS: ceFAZolin 2 GM Vial IV SCH ×3 (05:42→21:21)
[2022-08-12] MEDS: Acetaminophen 500 MG Tab PO SCH ×3 (05:42→21:24)
[2022-08-12] MEDS: glyBURIDE 5 MG Tab PO SCH ×2 (07:36→17:14)
[2022-08-12] MEDS: Insulin Lispro 100 Units/ML 3 ML Vial SUBCUT SCH ×4 (08:25→21:23)
[2022-08-12] MEDS: Lisinopril 5 MG Tab PO SCH (09:03)
[2022-08-12] MEDS: Aspirin 81 MG Tab.EC PO SCH (09:03)
[2022-08-12] MEDS: oxyCODONE ER 10 MG TAB.ER PO SCH ×2 (09:04→21:23)
[2022-08-12] MEDS: Ibuprofen 800 MG Tab PO SCH (09:04)
[2022-08-12] MEDS: Enoxaparin 40 MG/0.4 ML Syringe SUBCUT SCH (09:05)
[2022-08-12] MEDS: Polyethylene Glycol 3350 Powder 17 GM Packet PO SCH (09:05)
[2022-08-12] MEDS: Insulin Glarg,Human.Rec.Analog 100 Unit/ML SUBCUT SCH ×2 (09:06→21:22)
[2022-08-12] MEDS: Sodium Chloride 0.65% Nasal Spray 45 ML Bottle NASBOTH PRN (10:55)
[2022-08-12] MEDS: Sodium Chloride 0.9% 10 ML Syringe FLUSH PRN (14:25)
[2022-08-12] MEDS: atorvaSTATin 20 MG Tab PO SCH (21:23)
[2022-08-12] MEDS: Melatonin 3 MG Tab PO PRN (21:24)
[2022-08-13] MEDS: oxyCODONE 5 MG Tab PO PRN ×3 (03:18→19:30)
[2022-08-13] MEDS: Acetaminophen 500 MG Tab PO SCH ×3 (06:13→21:10)
[2022-08-13] MEDS: ceFAZolin 2 GM Vial IV SCH ×3 (06:13→21:10)
[2022-08-13] MEDS: Ibuprofen 800 MG Tab PO SCH (08:26)
[2022-08-13] MEDS: Aspirin 81 MG Tab.EC PO SCH (08:26)
[2022-08-13] MEDS: Insulin Glarg,Human.Rec.Analog 100 Unit/ML SUBCUT SCH ×2 (08:26→21:09)
[2022-08-13] MEDS: glyBURIDE 5 MG Tab PO SCH ×2 (08:27→15:58)
[2022-08-13] MEDS: oxyCODONE ER 10 MG TAB.ER PO SCH ×2 (08:27→21:11)
[2022-08-13] MEDS: Lisinopril 5 MG Tab PO SCH (08:28)
[2022-08-13] MEDS: Enoxaparin 40 MG/0.4 ML Syringe SUBCUT SCH (08:28)
[2022-08-13] MEDS: Insulin Lispro 100 Units/ML 3 ML Vial SUBCUT SCH ×4 (08:28→21:10)
[2022-08-13] MEDS: Sodium Chloride 0.9% 10 ML Syringe FLUSH PRN (08:28)
[2022-08-13] MEDS: Polyethylene Glycol 3350 Powder 17 GM Packet PO SCH (08:29)
[2022-08-13] MEDS: Menthol 10%/Methyl Salicylate 15% 85 GM Tube TOP PRN (08:31)
[2022-08-13] MEDS: Sodium Chloride 0.65% Nasal Spray 45 ML Bottle NASBOTH PRN (08:31)
[2022-08-13] MEDS: Melatonin 3 MG Tab PO PRN (21:11)
[2022-08-13] MEDS: atorvaSTATin 20 MG Tab PO SCH (21:11)
[2022-08-14] MEDS: oxyCODONE 5 MG Tab PO PRN ×3 (02:02→19:40)
[2022-08-14] MEDS: Acetaminophen 500 MG Tab PO SCH ×3 (05:41→21:30)
[2022-08-14] MEDS: ceFAZolin 2 GM Vial IV SCH ×3 (05:41→21:30)
[2022-08-14] MEDS: Sodium Chloride 0.65% Nasal Spray 45 ML Bottle NASBOTH PRN (07:19)
[2022-08-14] MEDS: glyBURIDE 5 MG Tab PO SCH ×2 (07:19→17:05)
[2022-08-14] MEDS: Menthol 10%/Methyl Salicylate 15% 85 GM Tube TOP PRN (07:19)
[2022-08-14] MEDS: Enoxaparin 40 MG/0.4 ML Syringe SUBCUT SCH (08:12)
[2022-08-14] MEDS: Insulin Glarg,Human.Rec.Analog 100 Unit/ML SUBCUT SCH ×2 (08:12→21:34)
[2022-08-14] MEDS: Sodium Chloride 0.9% 10 ML Syringe FLUSH PRN (08:13)
[2022-08-14] MEDS: Aspirin 81 MG Tab.EC PO SCH (08:14)
[2022-08-14] MEDS: Lisinopril 5 MG Tab PO SCH (08:14)
[2022-08-14] MEDS: oxyCODONE ER 10 MG TAB.ER PO SCH ×2 (08:14→21:31)
[2022-08-14] MEDS: PARoxetine 20 MG Tab PO SCH (08:15)
[2022-08-14] MEDS: Ibuprofen 800 MG Tab PO SCH (08:15)
[2022-08-14] MEDS: Polyethylene Glycol 3350 Powder 17 GM Packet PO SCH (08:16)
[2022-08-14] MEDS: Insulin Lispro 100 Units/ML 3 ML Vial SUBCUT SCH ×4 (08:19→21:33)
[2022-08-14] MEDS: atorvaSTATin 20 MG Tab PO SCH (21:31)
[2022-08-14] MEDS: Melatonin 3 MG Tab PO PRN (21:38)
[2022-08-15] MEDS: oxyCODONE 5 MG Tab PO PRN ×4 (01:48→20:15)
[2022-08-15] MEDS: ceFAZolin 2 GM Vial IV SCH ×3 (05:23→21:14)
[2022-08-15] MEDS: Acetaminophen 500 MG Tab PO SCH ×3 (05:23→21:14)
[2022-08-15] MEDS: Ibuprofen 800 MG Tab PO SCH (08:13)
[2022-08-15] MEDS: PARoxetine 20 MG Tab PO SCH (08:13)
[2022-08-15] MEDS: Aspirin 81 MG Tab.EC PO SCH (08:13)
[2022-08-15] MEDS: glyBURIDE 5 MG Tab PO SCH ×2 (08:14→17:20)
[2022-08-15] MEDS: Insulin Lispro 100 Units/ML 3 ML Vial SUBCUT SCH ×4 (08:14→21:13)
[2022-08-15] MEDS: Lisinopril 5 MG Tab PO SCH (08:15)
[2022-08-15] MEDS: Enoxaparin 40 MG/0.4 ML Syringe SUBCUT SCH (08:15)
[2022-08-15] MEDS: Polyethylene Glycol 3350 Powder 17 GM Packet PO SCH (08:19)
[2022-08-15] MEDS: oxyCODONE ER 10 MG TAB.ER PO SCH ×2 (09:57→21:14)
[2022-08-15] MEDS: Insulin Glarg,Human.Rec.Analog 100 Unit/ML SUBCUT SCH ×2 (09:58→21:12)
[2022-08-15 13:24] LABS: ANION GAP 11.7 mEq/L (7-13); CHLORIDE,CL 103 mmol/L (98-107); SODIUM,NA 141 mmol/L (136-145)
[2022-08-15 13:29] LABS: ESTIMATED GFR 96 mL/min (>=60)
[2022-08-15] MEDS: Menthol 10%/Methyl Salicylate 15% 85 GM Tube TOP PRN (21:07)
[2022-08-15] MEDS: Melatonin 3 MG Tab PO PRN (21:14)
[2022-08-15] MEDS: atorvaSTATin 20 MG Tab PO SCH (21:15)
[2022-08-16] MEDS: oxyCODONE 5 MG Tab PO PRN ×3 (02:27→19:46)
[2022-08-16] MEDS: Acetaminophen 500 MG Tab PO SCH ×3 (05:11→21:08)
[2022-08-16] MEDS: ceFAZolin 2 GM Vial IV SCH ×3 (05:12→21:10)
[2022-08-16] MEDS: Insulin Lispro 100 Units/ML 3 ML Vial SUBCUT SCH ×4 (07:25→20:57)
[2022-08-16] MEDS: oxyCODONE ER 10 MG TAB.ER PO SCH ×2 (08:03→21:09)
[2022-08-16] MEDS: Aspirin 81 MG Tab.EC PO SCH (08:05)
[2022-08-16] MEDS: Ibuprofen 800 MG Tab PO SCH (08:05)
[2022-08-16] MEDS: glyBURIDE 5 MG Tab PO SCH ×2 (08:05→16:26)
[2022-08-16] MEDS: Lisinopril 5 MG Tab PO SCH (08:05)
[2022-08-16] MEDS: PARoxetine 20 MG Tab PO SCH (08:07)
[2022-08-16] MEDS: Enoxaparin 40 MG/0.4 ML Syringe SUBCUT SCH (08:07)
[2022-08-16] MEDS: Polyethylene Glycol 3350 Powder 17 GM Packet PO SCH (08:07)
[2022-08-16] MEDS: Insulin Glarg,Human.Rec.Analog 100 Unit/ML SUBCUT SCH ×2 (08:08→21:10)
[2022-08-16] MEDS: Menthol 10%/Methyl Salicylate 15% 85 GM Tube TOP PRN (13:01)
[2022-08-16] MEDS: Sodium Chloride 0.9% 10 ML Syringe FLUSH PRN ×2 (14:02→21:13)
[2022-08-16] MEDS: atorvaSTATin 20 MG Tab PO SCH (21:10)
[2022-08-17] MEDS: diphenhydrAMINE 50 MG Cap PO PRN ×2 (01:10→21:44)
[2022-08-17] MEDS: Melatonin 3 MG Tab PO PRN ×2 (01:11→21:43)
[2022-08-17] MEDS: Menthol 10%/Methyl Salicylate 15% 85 GM Tube TOP PRN (01:11)
[2022-08-17] MEDS: oxyCODONE 5 MG Tab PO PRN ×3 (02:58→19:33)
[2022-08-17] MEDS: Acetaminophen 500 MG Tab PO SCH ×3 (05:26→21:55)
[2022-08-17] MEDS: ceFAZolin 2 GM Vial IV SCH ×3 (05:28→21:56)
[2022-08-17] MEDS: Sodium Chloride 0.9% 10 ML Syringe FLUSH PRN ×3 (05:28→21:44)
[2022-08-17] MEDS: glyBURIDE 5 MG Tab PO SCH ×2 (07:42→16:53)
[2022-08-17] MEDS: Insulin Lispro 100 Units/ML 3 ML Vial SUBCUT SCH ×4 (08:57→21:42)
[2022-08-17] MEDS: Polyethylene Glycol 3350 Powder 17 GM Packet PO SCH (09:03)
[2022-08-17] MEDS: Aspirin 81 MG Tab.EC PO SCH (09:05)
[2022-08-17] MEDS: Lisinopril 5 MG Tab PO SCH (09:06)
[2022-08-17] MEDS: Ibuprofen 800 MG Tab PO SCH (09:06)
[2022-08-17] MEDS: Enoxaparin 40 MG/0.4 ML Syringe SUBCUT SCH (09:07)
[2022-08-17] MEDS: PARoxetine 20 MG Tab PO SCH (09:07)
[2022-08-17] MEDS: oxyCODONE ER 10 MG TAB.ER PO SCH ×2 (09:07→21:43)
[2022-08-17] MEDS: Insulin Glarg,Human.Rec.Analog 100 Unit/ML SUBCUT SCH ×2 (09:08→21:42)
[2022-08-17] MEDS: atorvaSTATin 20 MG Tab PO SCH (21:43)
[2022-08-18] MEDS: oxyCODONE 5 MG Tab PO PRN ×3 (03:52→19:12)
[2022-08-18] MEDS: Acetaminophen 500 MG Tab PO SCH ×3 (05:39→22:03)
[2022-08-18] MEDS: ceFAZolin 2 GM Vial IV SCH ×3 (05:39→22:02)
[2022-08-18] MEDS: Ibuprofen 800 MG Tab PO SCH (09:54)
[2022-08-18] MEDS: glyBURIDE 5 MG Tab PO SCH ×2 (09:55→16:55)
[2022-08-18] MEDS: PARoxetine 20 MG Tab PO SCH (09:55)
[2022-08-18] MEDS: Lisinopril 5 MG Tab PO SCH (09:55)
[2022-08-18] MEDS: Aspirin 81 MG Tab.EC PO SCH (09:55)
[2022-08-18] MEDS: oxyCODONE ER 10 MG TAB.ER PO SCH ×2 (09:56→22:03)
[2022-08-18] MEDS: Enoxaparin 40 MG/0.4 ML Syringe SUBCUT SCH (09:57)
[2022-08-18] MEDS: Insulin Lispro 100 Units/ML 3 ML Vial SUBCUT SCH ×4 (09:57→22:02)
[2022-08-18] MEDS: Insulin Glarg,Human.Rec.Analog 100 Unit/ML SUBCUT SCH ×2 (09:58→22:01)
[2022-08-18] MEDS: Polyethylene Glycol 3350 Powder 17 GM Packet PO SCH (09:58)
[2022-08-18] MEDS: atorvaSTATin 20 MG Tab PO SCH (22:03)
[2022-08-18] MEDS: Melatonin 3 MG Tab PO PRN (22:04)
[2022-08-18] MEDS: diphenhydrAMINE 50 MG Cap PO PRN (22:08)
[2022-08-19] MEDS: oxyCODONE 5 MG Tab PO PRN ×3 (01:40→20:29)
[2022-08-19] MEDS: ceFAZolin 2 GM Vial IV SCH ×3 (05:14→21:43)
[2022-08-19] MEDS: Acetaminophen 500 MG Tab PO SCH ×3 (05:15→21:21)
[2022-08-19] MEDS: Enoxaparin 40 MG/0.4 ML Syringe SUBCUT SCH (08:45)
[2022-08-19] MEDS: Insulin Glarg,Human.Rec.Analog 100 Unit/ML SUBCUT SCH ×2 (08:45→21:36)
[2022-08-19] MEDS: Ibuprofen 800 MG Tab PO SCH (08:46)
[2022-08-19] MEDS: glyBURIDE 5 MG Tab PO SCH ×2 (08:46→17:23)
[2022-08-19] MEDS: Aspirin 81 MG Tab.EC PO SCH (08:46)
[2022-08-19] MEDS: PARoxetine 20 MG Tab PO SCH (08:47)
[2022-08-19] MEDS: oxyCODONE ER 10 MG TAB.ER PO SCH ×2 (08:47→21:22)
[2022-08-19] MEDS: Lisinopril 5 MG Tab PO SCH (08:47)
[2022-08-19] MEDS: Polyethylene Glycol 3350 Powder 17 GM Packet PO SCH (08:47)
[2022-08-19] MEDS: Insulin Lispro 100 Units/ML 3 ML Vial SUBCUT SCH ×4 (08:47→21:35)
[2022-08-19] MEDS: atorvaSTATin 20 MG Tab PO SCH (21:23)
[2022-08-19] MEDS: Melatonin 3 MG Tab PO PRN (21:24)
[2022-08-19] MEDS: diphenhydrAMINE 50 MG Cap PO PRN (21:24)
[2022-08-19] MEDS: Menthol 10%/Methyl Salicylate 15% 85 GM Tube TOP PRN (21:26)
[2022-08-19] MEDS: Sodium Chloride 0.9% 10 ML Syringe FLUSH PRN (21:39)
[2022-08-20] MEDS: oxyCODONE 5 MG Tab PO PRN ×3 (03:10→20:09)
[2022-08-20] MEDS: Acetaminophen 500 MG Tab PO SCH ×3 (06:23→21:46)
[2022-08-20] MEDS: Sodium Chloride 0.9% 10 ML Syringe FLUSH PRN ×2 (06:25→21:51)
[2022-08-20] MEDS: ceFAZolin 2 GM Vial IV SCH ×3 (06:25→21:51)
[2022-08-20] MEDS: Insulin Lispro 100 Units/ML 3 ML Vial SUBCUT SCH ×4 (08:11→22:02)
[2022-08-20] MEDS: oxyCODONE ER 10 MG TAB.ER PO SCH ×2 (08:12→21:47)
[2022-08-20] MEDS: Enoxaparin 40 MG/0.4 ML Syringe SUBCUT SCH (08:12)
[2022-08-20] MEDS: Ibuprofen 800 MG Tab PO SCH (08:14)
[2022-08-20] MEDS: glyBURIDE 5 MG Tab PO SCH ×2 (08:14→17:21)
[2022-08-20] MEDS: Aspirin 81 MG Tab.EC PO SCH (08:14)
[2022-08-20] MEDS: Insulin Glarg,Human.Rec.Analog 100 Unit/ML SUBCUT SCH ×2 (08:15→21:59)
[2022-08-20] MEDS: Lisinopril 5 MG Tab PO SCH (08:15)
[2022-08-20] MEDS: PARoxetine 20 MG Tab PO SCH (08:16)
[2022-08-20] MEDS: Polyethylene Glycol 3350 Powder 17 GM Packet PO SCH (08:16)
[2022-08-20] MEDS: atorvaSTATin 20 MG Tab PO SCH (21:45)
[2022-08-20] MEDS: diphenhydrAMINE 50 MG Cap PO PRN (21:48)
[2022-08-20] MEDS: Melatonin 3 MG Tab PO PRN (21:48)
[2022-08-21] MEDS: Menthol 10%/Methyl Salicylate 15% 85 GM Tube TOP PRN (00:54)
[2022-08-21] MEDS: oxyCODONE 5 MG Tab PO PRN ×3 (03:03→20:13)
[2022-08-21] MEDS: Acetaminophen 500 MG Tab PO SCH ×3 (06:24→21:44)
[2022-08-21] MEDS: Sodium Chloride 0.9% 10 ML Syringe FLUSH PRN (06:25)
[2022-08-21] MEDS: ceFAZolin 2 GM Vial IV SCH ×3 (06:26→21:44)
[2022-08-21] MEDS: Enoxaparin 40 MG/0.4 ML Syringe SUBCUT SCH (08:43)
[2022-08-21] MEDS: glyBURIDE 5 MG Tab PO SCH ×2 (08:44→17:35)
[2022-08-21] MEDS: Aspirin 81 MG Tab.EC PO SCH (08:45)
[2022-08-21] MEDS: Lisinopril 5 MG Tab PO SCH (08:46)
[2022-08-21] MEDS: Ibuprofen 800 MG Tab PO SCH (08:46)
[2022-08-21] MEDS: oxyCODONE ER 10 MG TAB.ER PO SCH ×2 (08:46→21:45)
[2022-08-21] MEDS: Polyethylene Glycol 3350 Powder 17 GM Packet PO SCH (08:47)
[2022-08-21] MEDS: PARoxetine 20 MG Tab PO SCH (08:47)
[2022-08-21] MEDS: Insulin Lispro 100 Units/ML 3 ML Vial SUBCUT SCH ×4 (08:47→21:46)
[2022-08-21] MEDS: Insulin Glarg,Human.Rec.Analog 100 Unit/ML SUBCUT SCH ×2 (08:48→21:46)
[2022-08-21] MEDS: atorvaSTATin 20 MG Tab PO SCH (20:13)
[2022-08-21] MEDS: diphenhydrAMINE 50 MG Cap PO PRN (21:56)
[2022-08-21] MEDS: Melatonin 3 MG Tab PO PRN (21:56)
[2022-08-22] MEDS: Menthol 10%/Methyl Salicylate 15% 85 GM Tube TOP PRN (00:47)
[2022-08-22] MEDS: oxyCODONE 5 MG Tab PO PRN ×3 (03:54→19:37)
[2022-08-22] MEDS: Acetaminophen 500 MG Tab PO SCH ×3 (05:55→21:08)
[2022-08-22] MEDS: ceFAZolin 2 GM Vial IV SCH ×3 (05:55→21:08)
[2022-08-22] MEDS: Insulin Lispro 100 Units/ML 3 ML Vial SUBCUT SCH ×4 (07:59→21:08)
[2022-08-22 08:05] LABS: ANION GAP 10.7 mEq/L (7-13); CHLORIDE,CL 104 mmol/L (98-107); SODIUM,NA 141 mmol/L (136-145)
[2022-08-22] MEDS: glyBURIDE 5 MG Tab PO SCH (08:05)
[2022-08-22] MEDS: PARoxetine 20 MG Tab PO SCH (08:05)
[2022-08-22] MEDS: Lisinopril 5 MG Tab PO SCH (08:06)
[2022-08-22] MEDS: Aspirin 81 MG Tab.EC PO SCH (08:07)
[2022-08-22] MEDS: oxyCODONE ER 10 MG TAB.ER PO SCH ×2 (08:07→21:11)
[2022-08-22 08:08] LABS: ESTIMATED GFR 99 mL/min (>=60)
[2022-08-22] MEDS: Ibuprofen 800 MG Tab PO SCH (08:08)
[2022-08-22] MEDS: Enoxaparin 40 MG/0.4 ML Syringe SUBCUT SCH (08:09)
[2022-08-22] MEDS: Insulin Glarg,Human.Rec.Analog 100 Unit/ML SUBCUT SCH ×2 (08:12→21:08)
[2022-08-22] MEDS: Polyethylene Glycol 3350 Powder 17 GM Packet PO SCH (08:15)
[2022-08-22] MEDS: Sodium Chloride 0.9% 10 ML Syringe FLUSH PRN (14:50)
[2022-08-22] MEDS: atorvaSTATin 20 MG Tab PO SCH (21:09)
[2022-08-22] MEDS: Melatonin 3 MG Tab PO PRN (21:10)
[2022-08-22] MEDS: diphenhydrAMINE 50 MG Cap PO PRN (21:14)
[2022-08-23] MEDS: oxyCODONE 5 MG Tab PO PRN ×2 (04:37→13:45)
[2022-08-23] MEDS: ceFAZolin 2 GM Vial IV SCH ×2 (05:14→13:47)
[2022-08-23] MEDS: Acetaminophen 500 MG Tab PO SCH ×2 (05:14→13:44)
[2022-08-23] MEDS: Aspirin 81 MG Tab.EC PO SCH ×2 (07:02→09:08)
[2022-08-23] MEDS: Lisinopril 5 MG Tab PO SCH ×2 (07:03→09:10)
[2022-08-23] MEDS: Ibuprofen 800 MG Tab PO SCH ×2 (07:03→09:09)
[2022-08-23] MEDS: oxyCODONE ER 10 MG TAB.ER PO SCH ×2 (07:04→09:09)
[2022-08-23] MEDS: Insulin Lispro 100 Units/ML 3 ML Vial SUBCUT SCH ×2 (07:07→12:17)
[2022-08-23] MEDS ORDERED: glyBURIDE 5 MG Tab PO SCH (08:00)
[2022-08-23] MEDS: Polyethylene Glycol 3350 Powder 17 GM Packet PO SCH (09:08)
[2022-08-23] MEDS: Insulin Glarg,Human.Rec.Analog 100 Unit/ML SUBCUT SCH (09:08)
[2022-08-23] MEDS: Enoxaparin 40 MG/0.4 ML Syringe SUBCUT SCH (09:08)
[2022-08-23] MEDS: PARoxetine 20 MG Tab PO SCH (09:10)
[2022-08-23 15:34] VITALS: BP 110/68; PULSE 78
== END 2022-08-23 15:15 | disposition home or self-care (01) | DRG 550 ==
LOC: DL.MS 13:57
PROVIDERS: ADMIT Internal Medicine; ATTEND Internal Medicine
PROC: 02HV33Z Insertion of Infusion Device into Superior Vena Cava, Percutaneous Approach (ICD-10-PCS; principal; 2022-08-08)
DX: M00.072 Staphylococcal arthritis, left ankle and foot (principal); B95.61 Methicillin susceptible Staphylococcus aureus infection as the cause of diseases classified elsewhere; E11.65 Type 2 diabetes mellitus with hyperglycemia; E11.649 Type 2 diabetes mellitus with hypoglycemia without coma; I10 Essential (primary) hypertension; E78.5 Hyperlipidemia, unspecified; I25.10 Atherosclerotic heart disease of native coronary artery without angina pectoris; K21.9 Gastro-esophageal reflux disease without esophagitis; G89.29 Other chronic pain; M54.9 Dorsalgia, unspecified; E66.9 Obesity, unspecified; E78.00 Pure hypercholesterolemia, unspecified; F19.10 Other psychoactive substance abuse, uncomplicated; Z79.82 Long term (current) use of aspirin; Z79.4 Long term (current) use of insulin; Z98.890 Other specified postprocedural states; Z79.899 Other long term (current) drug therapy; Z95.5 Presence of coronary angioplasty implant and graft; Z88.8 Allergy status to other drugs, medicaments and biological substances; Z90.49 Acquired absence of other specified parts of digestive tract; Z68.33 Body mass index [BMI] 33.0-33.9, adult
CPT/HCPCS: 36415; 71045; 80048; 80053; 82947; 85025; 85651; 86140; 97110-GP; 97116-GP; 97161-GP; 97165-GO; A9270-GY; J0690; J1650; J1815-GY; J1885; J2405; J3490; Q0163

== ENCOUNTER 2022-12-20 12:23 | Emergency (ER) | payer MEDICAID, MEDICARE ==
[2022-12-20 13:41] VITALS: BP 134/83; PULSE 102
[2022-12-20 14:46] LABS: BASOPHILS PERCENT AUTO 0.5 % (0.0-1.0); EOSINOPHILS PERCENT AUTO 1.8 % (1.0-3.0); HEMATOCRIT 48.2 % (40.0-54.0); HEMOGLOBIN 16.2 g/dL (14.0-18.0); LYMPHOCYTES PERCENT AUTO 26.4 % (20.5-50.1); MEAN CORPUSCULAR HEMOGLOBIN 28.6 pg (27.0-34.0); MEAN CORPUSCULAR HGB CONC 33.6 g/dL (33.0-35.0); MEAN CORPUSCULAR VOLUME 85.2 fL (80-100); MONOCYTES PERCENT AUTO 9.8 % (2-8); NEUTROPHILS PERCENT AUTO 61.5 % (42.2-75.2); PLATELET COUNT,PLT 245 10^3/uL (150-450); RED BLOOD CELL COUNT 5.66 10^6/uL (4.6-6.2); WHITE BLOOD CELL COUNT,WBC 8.5 10^3/uL (5.0-10.0)
[2022-12-20] MEDS: Omeprazole 20 MG Cap.CR PO ONE (14:46)
[2022-12-20] MEDS: Lactated Ringers 1,000 ML IV SCH (14:47)
[2022-12-20 15:03] LABS: A/G RATIO 0.9; ALANINE AMINOTRANSFERASE,ALT 32 U/L (16-63); ALBUMIN 3.9 g/dL (3.4-5.0); ALKALINE PHOSPHATASE 102 U/L (46-116); ANION GAP 11.7 mEq/L (7-13); ASPARTATE AMNIOTRANSFERASE,AST 24 U/L (15-37); BILIRUBIN TOTAL 0.4 mg/dL (0.2-1.0); BLOOD UREA NITROGEN,BUN 16 mg/dL (7-18); BUN/CREATININE RATIO 17.4 (No establ ref range); CALCIUM 9.3 mg/dL (8.5-10.1); CARBON DIOXIDE,CO2 30 mmol/L (21-32); CHLORIDE,CL 101 mmol/L (98-107); CREATININE 0.92 mg/dL (0.70-1.30); GLUCOSE RANDOM 161 mg/dL (70-99); LIPASE 109 U/L (73-393); POTASSIUM,K 4.7 mmol/L (3.5-5.1); PROTEIN TOTAL,TP 8.2 g/dL (6.4-8.2); SODIUM,NA 138 mmol/L (136-145)
[2022-12-20 15:10] LABS: ESTIMATED GFR 98 mL/min (>=60)
[2022-12-20] MEDS: Ondansetron 4 MG/2 ML SDV IVPUSH ONE (15:40)
== END 2022-12-20 15:55 | disposition home or self-care (01) ==
LOC: DL.ED 12:23
DX: K21.9 Gastro-esophageal reflux disease without esophagitis (principal); K59.00 Constipation, unspecified; I10 Essential (primary) hypertension; E11.9 Type 2 diabetes mellitus without complications; E66.9 Obesity, unspecified; Z79.82 Long term (current) use of aspirin; Z79.899 Other long term (current) drug therapy; Z88.5 Allergy status to narcotic agent; Z88.8 Allergy status to other drugs, medicaments and biological substances
CPT/HCPCS: 36415; 74022; 80053; 83690; 85025; 96361; 96374; 99284; 99284-25; A9270-GY; J2405; J7120

== ENCOUNTER 2023-04-28 06:20 | Day surgery (SDC) | payer MEDICARE, OTHER ==
[~2023-04-28 06:20] MED LIST changes: -Midazolam 1 MG/ML 2 ML SDV ONE; -Sodium Chloride 0.9% 10 ML Syringe FLUSH PRN; -fentaNYL 100 MCG/2 ML SDV ONE
[2023-04-28] MEDS ORDERED: Dextrose 5%-0.45% NaCl 1,000 ML IV SCH (06:30)
[2023-04-28 06:39] VITALS: BP 132/74; PULSE 63
== END 2023-04-28 07:00 | disposition home or self-care (01) ==
LOC: DL.ENDO 06:20
PROVIDERS: ATTEND Internal Medicine Gastroenterology
DX: R73.9 Hyperglycemia, unspecified (principal); Z53.8 Procedure and treatment not carried out for other reasons
CPT/HCPCS: J7042

== ENCOUNTER 2023-05-05 05:27 | Day surgery (SDC) | payer MEDICARE, OTHER ==
[2023-05-05] MEDS ORDERED: Dextrose 5%-0.45% NaCl 1,000 ML IV SCH (05:30)
[2023-05-05] MEDS ORDERED: Midazolam 1 MG/ML 2 ML SDV IV ONE ×3 (06:17→06:35)
[2023-05-05] MEDS ORDERED: Midazolam 1 MG/ML 2 ML SDV ONE (06:17)
[2023-05-05] MEDS ORDERED: fentaNYL 100 MCG/2 ML SDV ONE (06:17)
[2023-05-05] MEDS ORDERED: fentaNYL 100 MCG/2 ML SDV IV ONE ×3 (06:17→06:34)
[2023-05-05 07:51] VITALS: BP 98/63; PULSE 58
== END 2023-05-05 08:05 | disposition home or self-care (01) ==
LOC: DL.ENDO 05:27
PROVIDERS: ATTEND Internal Medicine Gastroenterology
DX: K31.84 Gastroparesis (principal); R10.9 Unspecified abdominal pain; M54.50 Low back pain, unspecified; K21.9 Gastro-esophageal reflux disease without esophagitis; I10 Essential (primary) hypertension; K73.9 Chronic hepatitis, unspecified; E78.5 Hyperlipidemia, unspecified; K57.30 Diverticulosis of large intestine without perforation or abscess without bleeding; E66.09 Other obesity due to excess calories; Z68.34 Body mass index [BMI] 34.0-34.9, adult; Z88.5 Allergy status to narcotic agent; Z88.8 Allergy status to other drugs, medicaments and biological substances
CPT/HCPCS: 43239; 87077; J2250; J3010; J7042; 88305

== ENCOUNTER 2023-12-15 16:32 | Emergency (ER) | payer MEDICARE, OTHER, MEDICAID ==
[2023-12-15 16:50] VITALS: BP 147/85; PULSE 89
[2023-12-15] MEDS: Dexamethasone 4 MG/ML SDV IM ONE (17:10)
[2023-12-15] MEDS: Ondansetron 4 MG/2 ML SDV IM ONE (17:11)
== END 2023-12-15 17:18 | disposition home or self-care (01) ==
LOC: DL.ED 16:32
DX: B34.9 Viral infection, unspecified (principal); I10 Essential (primary) hypertension; E78.00 Pure hypercholesterolemia, unspecified; E11.9 Type 2 diabetes mellitus without complications; K21.9 Gastro-esophageal reflux disease without esophagitis; Z95.5 Presence of coronary angioplasty implant and graft; Z90.49 Acquired absence of other specified parts of digestive tract; Z88.5 Allergy status to narcotic agent; Z88.8 Allergy status to other drugs, medicaments and biological substances; Z79.82 Long term (current) use of aspirin; Z79.899 Other long term (current) drug therapy; Z79.4 Long term (current) use of insulin
CPT/HCPCS: 96372; 99284; J1100; J2405

== ENCOUNTER 2024-01-18 22:18 | Emergency (ER) | payer MEDICAID, MEDICARE ==
[2024-01-18 22:34] VITALS: BP 137/99; PULSE 107
[2024-01-18] MEDS: Sodium Chloride 0.9% 1,000 ML IV ONE ×3 (22:43→23:29)
[2024-01-18 22:47] LABS: BASOPHILS PERCENT AUTO 0.7 % (0.0-1.0); EOSINOPHILS PERCENT AUTO 1.3 % (1.0-3.0); HEMATOCRIT 43.4 % (40.0-54.0); HEMOGLOBIN 14.2 g/dL (14.0-18.0); LYMPHOCYTES PERCENT AUTO 24.8 % (20.5-50.1); MEAN CORPUSCULAR HEMOGLOBIN 28.2 pg (27.0-34.0); MEAN CORPUSCULAR HGB CONC 32.7 g/dL (33.0-35.0); MEAN CORPUSCULAR VOLUME 86.3 fL (80-100); MONOCYTES PERCENT AUTO 9.9 % (2-8); NEUTROPHILS PERCENT AUTO 63.3 % (42.2-75.2); PLATELET COUNT,PLT 216 10^3/uL (150-450); RED BLOOD CELL COUNT 5.03 10^6/uL (4.6-6.2); WHITE BLOOD CELL COUNT,WBC 10.8 10^3/uL (5.0-10.0)
[2024-01-18] MEDS: cefTRIAXone 1 GM Vial IVPUSH ONE (23:03)
[2024-01-18 23:08] LABS: ANION GAP 12.8 mEq/L (7-13); BILIRUBIN TOTAL 0.3 mg/dL (0.2-1.0); BUN/CREATININE RATIO 18.9 (No establ ref range); CREATININE 1.22 mg/dL (0.70-1.30); EST CRCL DRUG DOSING (CG) 66.8 mL/min; MAGNESIUM 1.6 mg/dL (1.8-2.4); POTASSIUM,K 3.8 mmol/L (3.5-5.1)
[2024-01-18 23:09] LABS: A/G RATIO 0.75
[2024-01-18 23:14] LABS: LACTIC ACID 2.2 mmol/L (0.4-2.0)
[2024-01-18] MEDS: Magnesium Sulfate/Water 2 GM in Premix Bag 1 BAG IV ONE (23:24)
[2024-01-19 00:44] LABS: APPEARANCE,URINE CLEAR (CLEAR); BILIRUBIN,URINE NEGATIVE (NEGATIVE); COLOR,URINE YELLOW (YELLOW); GLUCOSE,URINE 500 (NEGATIVE); KETONES,URINE NEGATIVE (NEGATIVE); LEUKOCYTE ESTERASE,URINE NEGATIVE (NEGATIVE); NITRITE,URINE NEGATIVE (NEGATIVE); OCCULT BLOOD,URINE TRACE-INTACT (NEGATIVE); PROTEIN,URINE 30 (NEGATIVE); UROBILINOGEN,URINE 0.2 mg/dL (0.2-1.0)
[2024-01-19 01:02] LABS: BACTERIA,URINE FEW /HPF (0-FEW/HPF); EPITHELIAL CELLS,URINE FEW /HPF (NOT SEEN); RBC,URINE 0-5 /HPF (0-5); WBC,URINE 0-5 /HPF (0-5/HPF)
== END 2024-01-19 07:24 ==
LOC: DL.ED 22:18
DX: L03.115 Cellulitis of right lower limb (principal); A41.9 Sepsis, unspecified organism; E11.65 Type 2 diabetes mellitus with hyperglycemia; I10 Essential (primary) hypertension; E78.00 Pure hypercholesterolemia, unspecified; K21.9 Gastro-esophageal reflux disease without esophagitis; E11.9 Type 2 diabetes mellitus without complications; E66.9 Obesity, unspecified; Z68.34 Body mass index [BMI] 34.0-34.9, adult; Z90.49 Acquired absence of other specified parts of digestive tract; Z79.82 Long term (current) use of aspirin; Z79.899 Other long term (current) drug therapy; Z79.4 Long term (current) use of insulin; Z88.8 Allergy status to other drugs, medicaments and biological substances
CPT/HCPCS: 36415; 80053; 81001; 82947; 83605; 83735; 85025; 87040; 96361; 96365; 96366; 96375; 99283-25; J0696; J3475; J7030

== ENCOUNTER 2025-02-24 17:42 | Emergency (ER) | payer MEDICARE, OTHER ==
[2025-02-24 18:19] LABS: BASOPHILS PERCENT AUTO 0.6 % (0.0-1.0); EOSINOPHILS PERCENT AUTO 2.6 % (1.0-3.0); LYMPHOCYTES PERCENT AUTO 25.6 % (20.5-50.1); MONOCYTES PERCENT AUTO 8.3 % (2-8); NEUTROPHILS PERCENT AUTO 62.9 % (42.2-75.2); PLATELET COUNT,PLT 219 10^3/uL (150-450); RED BLOOD CELL COUNT 5.08 10^6/uL (4.6-6.2); WHITE BLOOD CELL COUNT,WBC 9.9 10^3/uL (5.0-10.0)
[2025-02-24] MEDS: Ondansetron 4 MG/2 ML SDV IVPUSH ONE (18:20)
[2025-02-24 18:37] LABS: ALANINE AMINOTRANSFERASE,ALT 21.0 U/L (16-63); ASPARTATE AMNIOTRANSFERASE,AST 13.0 U/L (15-37); BILIRUBIN TOTAL 0.2 mg/dL (0.2-1.0); BLOOD UREA NITROGEN,BUN 22.0 mg/dL (7-18); CARBON DIOXIDE,CO2 26.0 mmol/L (21-32); CHLORIDE,CL 108.0 mmol/L (98-107); CREATININE 0.97 mg/dL (0.70-1.30); EST CRCL DRUG DOSING (CG) 93.81 mL/min; GLUCOSE RANDOM 206.0 mg/dL (70-99); POTASSIUM,K 3.9 mmol/L (3.5-5.1); PROTEIN TOTAL,TP 7.2 g/dL (6.4-8.2); SODIUM,NA 144.0 mmol/L (136-145)
[2025-02-24 18:39] LABS: A/G RATIO 0.8; ESTIMATED GFR 90.0 mL/min (>=60)
[2025-02-24] MEDS: Take Home: Ondansetron 4 MG Tab.DIS, 5 Tab Pack PO ONE (19:16)
[2025-02-24 19:47] VITALS: BP 164/86; PULSE 61
== END 2025-02-24 19:16 ==
LOC: DL.ED 17:42
DX: K57.32 Diverticulitis of large intestine without perforation or abscess without bleeding (principal); I10 Essential (primary) hypertension; E78.00 Pure hypercholesterolemia, unspecified; K21.9 Gastro-esophageal reflux disease without esophagitis; E11.9 Type 2 diabetes mellitus without complications; Z88.5 Allergy status to narcotic agent; Z88.8 Allergy status to other drugs, medicaments and biological substances; Z79.82 Long term (current) use of aspirin; Z79.899 Other long term (current) drug therapy; Z79.4 Long term (current) use of insulin
CPT/HCPCS: 36415; 80053; 85025; 96374; 99284; A9270; J2405; J7030; Q0162

== ENCOUNTER 2025-02-26 10:58 | Emergency (ER) | payer MEDICARE, OTHER ==
[2025-02-26 11:23] LABS: BASOPHILS PERCENT AUTO 0.3 % (0.0-1.0); EOSINOPHILS PERCENT AUTO 2.0 % (1.0-3.0); LYMPHOCYTES PERCENT AUTO 22.9 % (20.5-50.1); MONOCYTES PERCENT AUTO 8.6 % (2-8); NEUTROPHILS PERCENT AUTO 66.2 % (42.2-75.2); PLATELET COUNT,PLT 236 10^3/uL (150-450); RED BLOOD CELL COUNT 5.57 10^6/uL (4.6-6.2); WHITE BLOOD CELL COUNT,WBC 9.4 10^3/uL (5.0-10.0)
[2025-02-26 11:47] LABS: A/G RATIO 0.8; ALANINE AMINOTRANSFERASE,ALT 23.0 U/L (16-63); ASPARTATE AMNIOTRANSFERASE,AST 20.0 U/L (15-37); BILIRUBIN TOTAL 0.4 mg/dL (0.2-1.0); BLOOD UREA NITROGEN,BUN 20.0 mg/dL (7-18); CARBON DIOXIDE,CO2 27.0 mmol/L (21-32); CHLORIDE,CL 104.0 mmol/L (98-107); CREATININE 0.94 mg/dL (0.70-1.30); EST CRCL DRUG DOSING (CG) 85.66 mL/min; GLUCOSE RANDOM 194.0 mg/dL (70-99); POTASSIUM,K 4.1 mmol/L (3.5-5.1); PROTEIN TOTAL,TP 7.9 g/dL (6.4-8.2); SODIUM,NA 139.0 mmol/L (136-145)
[2025-02-26 11:50] LABS: ESTIMATED GFR 94.0 mL/min (>=60)
[2025-02-26 13:56] VITALS: BP 171/94; PULSE 64
== END 2025-02-26 13:50 | disposition home or self-care (01) ==
LOC: DL.ED 10:58
DX: K57.32 Diverticulitis of large intestine without perforation or abscess without bleeding (principal); I10 Essential (primary) hypertension; E78.00 Pure hypercholesterolemia, unspecified; K21.9 Gastro-esophageal reflux disease without esophagitis; E11.9 Type 2 diabetes mellitus without complications; Z95.1 Presence of aortocoronary bypass graft; Z88.5 Allergy status to narcotic agent; Z79.899 Other long term (current) drug therapy; Z79.82 Long term (current) use of aspirin; Z79.4 Long term (current) use of insulin; Z90.49 Acquired absence of other specified parts of digestive tract
CPT/HCPCS: 36415; 80053; 83690; 85025; 96361; 96374; 99285; J2270; J7030

== ENCOUNTER 2025-03-29 19:18 | Emergency (ER) | payer MEDICARE, OTHER ==
[2025-03-29] MEDS: Ondansetron 4 MG/2 ML SDV IVPUSH ONE (19:51)
[2025-03-29 19:56] LABS: BASOPHILS PERCENT AUTO 0.3 % (0.0-1.0); EOSINOPHILS PERCENT AUTO 0.1 % (1.0-3.0); LYMPHOCYTES PERCENT AUTO 8.0 % (20.5-50.1); MONOCYTES PERCENT AUTO 3.9 % (2-8); NEUTROPHILS PERCENT AUTO 87.7 % (42.2-75.2); PLATELET COUNT,PLT 203 10^3/uL (150-450); RED BLOOD CELL COUNT 6.15 10^6/uL (4.6-6.2); WHITE BLOOD CELL COUNT,WBC 10.6 10^3/uL (5.0-10.0)
[2025-03-29 20:18] LABS: BILIRUBIN TOTAL 1.2 mg/dL (0.2-1.0); BLOOD UREA NITROGEN,BUN 24 mg/dL (7-18); CARBON DIOXIDE,CO2 27 mmol/L (21-32); CHLORIDE,CL 106 mmol/L (98-107); CREATININE 1.38 mg/dL (0.70-1.30); EST CRCL DRUG DOSING (CG) 55.76 mL/min; GLUCOSE RANDOM 212 mg/dL (70-99); POTASSIUM,K 3.8 mmol/L (3.5-5.1); PROTEIN TOTAL,TP 7.8 g/dL (6.4-8.2); SODIUM,NA 146 mmol/L (136-145)
[2025-03-29 20:23] LABS: A/G RATIO 0.73; ESTIMATED GFR 59 mL/min (>=60)
[2025-03-29 20:25] LABS: LACTIC ACID 2.5 mmol/L (0.4-2.0)
[2025-03-29] MEDS: GI Cocktail Oral Solution 30 ML PO ONE (20:43)
[2025-03-29 20:51] LABS: ALANINE AMINOTRANSFERASE,ALT > 1000 U/L (16-63)
[2025-03-29 20:52] LABS: ASPARTATE AMNIOTRANSFERASE,AST > 1000 U/L (15-37)
[2025-03-29] MEDS: Iopamidol 612 MG/ML 100 ML Bottle IVPUSH ONE ×2 (20:54→21:10)
[2025-03-29 20:55] LABS: INR 1.2 (0.9-1.2); PTT,PARTIAL THROMBOPLSTIN TIME 24.9 SEC (22.0-34.0)
[2025-03-29 22:25] VITALS: BP 159/88; PULSE 101
[2025-03-29] MEDS: Take Home: Ondansetron 4 MG Tab.DIS, 5 Tab Pack PO ONE (23:02)
[2025-04-02 11:46] LABS: HAV AB IGM Negative (Negative); HBC IGM Negative (Negative); HEP B SURG AG Negative (Negative); HEP C AB BY CIA High Pos (Negative); HEP C AB BY CIA INDEX >11.00 IV
== END 2025-03-29 23:07 | disposition home or self-care (01) ==
LOC: DL.ED 19:18
DX: E86.0 Dehydration (principal); R11.2 Nausea with vomiting, unspecified; R74.01 Elevation of levels of liver transaminase levels; I10 Essential (primary) hypertension; E11.9 Type 2 diabetes mellitus without complications; I25.10 Atherosclerotic heart disease of native coronary artery without angina pectoris; K21.9 Gastro-esophageal reflux disease without esophagitis; E78.00 Pure hypercholesterolemia, unspecified; Z88.5 Allergy status to narcotic agent; Z88.8 Allergy status to other drugs, medicaments and biological substances; Z79.899 Other long term (current) drug therapy; Z79.82 Long term (current) use of aspirin; Z95.1 Presence of aortocoronary bypass graft; Z90.49 Acquired absence of other specified parts of digestive tract
CPT/HCPCS: 36415; 74177; 80053; 80074; 82947; 83605; 83690; 83735; 85025; 85610; 85730; 86140; 96361; 96374; 99284; A9270; J2405; J7030; Q0162; Q9967